=== PATIENT | male | born 1975 | race Asian ===

== ENCOUNTER 2016-07-23 21:34 | Inpatient (IN) | payer OTHER ==
[~2016-07-23] VITALS: Ht 179.1 cm; Wt 85.7 kg
[~2016-07-23 21:34] MED LIST: CENTRUM SILVER1 EAC3 PO; CHLORDIAZEPOXID25 M3 PO; CITALOPRAM HYDR20 MG PO; ESCITALOPRAM OX20 MG PO; FOLIC ACID1 M1; HALOPERIDOL2 MG PO; NICOTINE PATCH1 EAC1 TD; NICOTINE PATCH1 EAC1 TOP; NICOTINE PATCH1 EAC4 TOP; PROPRANOLOL HCL20 M1 PO; PROPRANOLOL HCL20 MG PO; TRAZODONE HCL50 M1 PO; VITAMIN B-1100 MG PO
--- NOTE | 2016-07-23 21:57 | NUR ---
RECEIVED 40 YO MALE C/O HAS NOT EATEN IN 7 DAYS SECONDARY TO NAUSEA AND VOMITING, UNABLE TO TOLERATE FOOD/FLUIDS. PT WITH A HX OF ETOH ABUSE, C/O HE LOOKS PUFFY, EDEMATOUS IN FACE AND FEET.
--- NOTE | 2016-07-23 22:21 | ED GENERAL ADULT ---
History of Present Illness General Chief Complaint: General Adult Stated Complaint: ETOH DETOX, VOMTING X 4DAYS, PUFFY,EDEMA PER PT Source: patient, family Exam Limitations: no limitations Vital Signs & Intake/Output Vital Signs & Intake/Output Vital Signs Date Time Temp Pulse Resp B/P Pulse O2 O2 Flow FiO2 Ox Delivery Rate 07/24 0232 98.0 80 20 104/70 95 Room Air 07/24 0129 96.5 85 18 106/63 97 Room Air 07/23 2350 97.2 88 18 112/77 07/23 2350 97.2 88 18 112/77 100 Room Air 07/23 2246 Room Air 07/23 2156 97.7 112 20 141/91 97 Room Air ED Intake and Output 07/24 0000 07/23 1200 Intake Total Output Total Balance Patient 192 lb Weight Allergies Coded Allergies: NO KNOWN ALLERGIES (12/14/14) Reconcile Medications Chlordiazepoxide HCl 25 MG CAPSULE 1 CAP PO TID PRN anxiety/withdrawal symptoms ten...[id number] Chlordiazepoxide HCl 25 MG CAPSULE 1-2 CAP PO TID PRN alcohol withdrawal four tabs...[id number] Escitalopram Oxalate 20 MG TABLET 1 TAB PO DAILY MENTAL HEALTH (Reported) Folic Acid 1 MG TABLET 1 MG PO DAILY FOLIC ACID SUPPLEMENT (Reported) Multivit-Min/FA/Lycopen/Lutein (Centrum Silver Tablet) 1 EACH TABLET 1 TAB PO DAILY VITAMIN SUPPORT (Reported) Propranolol HCl 20 MG TABLET 1 TAB PO DAILY HEART (Reported) Thiamine HCl (Vitamin B-1) 100 MG TABLET 1 TAB PO DAILY vitamin supplement Trazodone HCl 50 MG TABLET 1 TAB PO QPM sleep (Reported) Triage Note: RECEIVED 40 YO MALE C/O HAS NOT EATEN IN 7 DAYS SECONDARY TO NAUSEA AND VOMITING, UNABLE TO TOLERATE FOOD/FLUIDS. PT WITH A HX OF ETOH ABUSE, C/O HE LOOKS PUFFY, EDEMATOUS IN FACE AND FEET. Triage Nurses Notes Reviewed? yes Onset: Gradual Duration: week(s): Timing: recent history Injury Environment: home Severity: moderate Modifying Factors: Improves With: rest. Worsens With: other (vomiting, etoh). Associated Symptoms: nausea, vomiting HPI: 40-year-old gentleman with several history of alcoholism including more than 30 admission's for alcohol detox presents with 7 day history of nausea vomiting and decreased oral intake. He notes that he drinks usually between 1 and 2 pints of liquor a day. Starting 7 days ago, he started vomiting has not been able to hold anything down. He notes weakness and thirst. He notes a mild tremor, and slight facial "puffiness." He has no seizure history. He is otherwise well. Past History Travel History Traveled to [place] past 21 day No Medical History Any Pertinent Medical History? see below for history Neurological: NONE EENT: NONE Cardiovascular: NONE Respiratory: NONE Gastrointestinal: NONE Hepatic: NONE Renal: NONE Musculoskeletal: NONE Psychiatric: anxiety, depression Endocrine: NONE Blood Disorders: NONE Cancer(s): NONE SAFETY CONSULTANT/Reproductive: NONE History of MRSA: No History of VRE: No History of CDIFF: No Surgical History Surgical History: none Psychosocial History Who do you live with Family What is your primary language Somali Tobacco Use: Current Daily Use Daily Tobacco Use Amount/Type: => 5 Cigarettes daily Family History Hx Contributory? No Review of Systems Review of Systems Constitutional: Reports: no symptoms. EENTM: Reports: no symptoms. Respiratory: Reports: no symptoms. Cardiovascular: Reports: no symptoms. GI: Reports: no symptoms. Genitourinary: Reports: no symptoms. Musculoskeletal: Reports: no symptoms. Skin: Reports: no symptoms. Neurological/Psychological: Reports: no symptoms. Hematologic/Endocrine: Reports: no symptoms. Immunologic/Allergic: Reports: no symptoms. All Other Systems: Reviewed and Negative Physical Exam Physical Exam General Appearance: well developed/nourished, mild distress Head: atraumatic, normal appearance Eyes: Bilateral: normal appearance, PERRL, EOMI. Ears, Nose, Throat: normal pharynx, normal ENT inspection Neck: normal inspection, supple, full range of motion Respiratory: normal breath sounds, chest non-tender, no respiratory distress, quiet respiration, lungs clear Cardiovascular: regular rate/rhythm Gastrointestinal: normal bowel sounds, soft, non-tender, no organomegaly Back: normal inspection, normal range of motion Extremities: normal inspection, normal capillary refill, normal range of motion, no edema Neurologic/Psych: no motor/sensory deficits, awake, alert, oriented x 3 Skin: intact, normal color, warm/dry Core Measures ACS in differential dx? No CVA/TIA Diagnosis: No Severe Sepsis Present: No Septic Shock Present: No Progress Differential Diagnoses I considered the following diagnoses in my evaluation of the patient: electrolyte abnormality vs etoh vs etoh withdrawal vs other. Plan of Care: Orders Procedure Date/time Status HEPATIC FUNCTION PANEL 07/25 599 Active CBC WITHOUT DIFFERENTIAL 07/25 599 Active BASIC ELECTROLYTES PLUS BUN&CR 07/25 599 Active Nothing by Mouth 07/24 B Active Change service to 07/24 0217 Active Saline Lock 07/24 0018 Active Pathway - chart 07/24 17 Active EKG 07/24 0004 Active Patient Data 07/23 235 Active Saline Lock 07/23 2344 Active Misc Message 07/23 2344 Active ED Holding Orders 07/23 2344 Active Admit to inpatient 07/23 234 Active Vital Signs 07/23 234 Active Code Status 07/23 234 Active Intake & Output 07/23 224 Active CIWA 07/24 2239 Active LIPASE 07/24 2239 Complete AMYLASE 07/24 2239 Complete URINE DRUG SCREEN FOR ER ONLY 07/23 2156 Active ETHANOL 07/23 2156 Complete COMPREHENSIVE METABOLIC PANEL 07/23 2156 Complete CBC WITHOUT DIFFERENTIAL 07/23 2156 Complete Current Medications Sig/Dottie Start time Last Medication Dose Stop Time Status Admin Enoxaparin Sodium 40 MG DAILY 07/24 1000 AC (Lovenox) Lorazepam 2 MG Q6 07/24 0600 CAN (Ativan) Lorazepam 2 MG Q6 07/24 0600 AC (Ativan) Cyanocobalamin/ 1 BAG DAILY 07/24 29 UNVr Thiamine/Pyridoxine (Vitamin in I.V.) Sodium Chloride 1,000 ML (Normal Saline 0.9%) Diphenhydramine HCl 50 MG Q4P PRN 07/24 003 AC (Benadryl) Lactated Ringer's 1,000 ML .Q4H 07/24 003 AC (Lactated Ringers) 07/24 0429 Lorazepam 0 Q1P PRN 07/24 003 AC (Ativan) Metoclopramide HCl 10 MG Q6P PRN 07/24 0030 AC (Reglan) Morphine Sulfate 2 MG Q4P PRN 07/24 29 AC (Morphine) Laboratory Tests 07/23/160: Anion Gap 15, Estimated GFR > 60, BUN/Creatinine Ratio 12.5, Glucose 115 H, Calcium 9.3, Total Bilirubin 0.9, AST 267 H, ALT 134 H, Alkaline Phosphatase 102, Total Protein 8.4 H, Albumin 4.5, Globulin 3.9, Albumin/Globulin Ratio 1.2 , Amylase 131 H, Lipase 715 H, Serum Alcohol 382.0 07/23/160: CBC w Diff NO MAN DIFF REQ, RBC 5.61, MCV 86.1, MCH 28.6, RDW 15.4 H, MPV 7.4, Gran % 51.9, Lymphocytes % 37.0, Monocytes % 7.5, Eosinophils % 3.0, Basophils % 0.6, Absolute Granulocytes 3.0, Absolute Lymphocytes 2.2, Absolute Monocytes 0.4 , Absolute Eosinophils 0.2, Absolute Basophils 0, PUBS MCHC 33.2 07/23/16 2222: Amylase Cancelled, Lipase Cancelled Diagnostic Imaging: Viewed by Me: CT Scan. Discussed w/RAD: CT Scan. Radiology Impression: abd/pelvic ct... no acute change... full report below. Initial ED EKG: normal axis, normal intervals, normal p-waves, normal QRS complex, normal sinus rhythm Comments: PATIENT: KARLI AGUERO PRESENT AGE: 40 PATIENT ACCOUNT NO: [id number] : 76 LOCATION: [facility] ORDERING PHYSICIAN: CATHERINE EASON MD SERVICE DATE: 07/23/16 EXAM TYPE: CAT - CT ABD & PELVIS W/O IV CONTRAS EXAMINATION: CT ABDOMEN AND PELVIS WITHOUT CONTRAST CLINICAL INFORMATION: Upper abdominal pain. COMPARISON: None TECHNIQUE: Multidetector volumetric imaging was performed from the superior aspect of the liver through the pubic symphysis. Sagittal and coronal reformatted images were obtained on the technologist's workstation. No oral or intravenous contrast DLP: 351.56 mGy-cm FINDINGS: LUNG BASES: The visualized lung bases are unremarkable. LIVER, GALLBLADDER, AND BILIARY TREE: Diffuse low attenuation of the liver parenchyma due to fatty change. No focal liver lesion. No hepatic bile duct dilatation. Right lobe liver measures 18.4 cm superior inferior. The gallbladder is unremarkable with no evidence of radiopaque gallstones, gallbladder wall thickening, or obvious pericholecystic inflammatory changes. PANCREAS: Unremarkable. SPLEEN: Unremarkable. ADRENAL GLANDS: Unremarkable. KIDNEYS AND URETERS: The kidneys are normal in size, shape, and attenuation. No hydronephrosis, hydroureter, or calculi seen. No perinephric stranding. BLADDER: Unremarkable. GASTROINTESTINAL TRACT: The small and large bowel are unremarkable. The appendix is unremarkable. Stomach unremarkable. ABDOMINAL WALL: No significant hernia is appreciated. LYMPH NODES: Normal. VASCULAR: Unremarkable. PELVIC VISCERA: Unremarkable. OSSEOUS STRUCTURES: Unremarkable. IMPRESSION: No acute abnormality CT scan abdomen and pelvis. Diffuse fatty change of liver. DICTATED BY: SUSANNA TRAORE MD DATE/TIME DICTATED:07/24/1626 CHARTERED ACCOUNTANT:HAIM DATE/TIME TRANSCRIBED:07/24/1626 CONFIDENTIAL, DO NOT COPY WITHOUT APPROPRIATE AUTHORIZATION. <Electronically signed in Other Vendor System> SIGNED BY: SUSANNA TRAORE MD 07/24/16 003 Departure Departure Disposition: HOME OR SELF CARE Condition: Stable Clinical Impression Primary Impression: Alcoholism Secondary Impressions: Alcoholic hepatitis, Pancreatitis Referrals: ERVIN MOJICA MD (PCP/Family) Departure Forms: Customer Survey General Discharge Information Critical Care Note Critical Care Note Critical Care Time: non-applicable
--- NOTE | 2016-07-23 22:30 | NUR ---
IV EST #20 LAC
--- NOTE | 2016-07-23 22:46 | NUR ---
PT MEDICATED PER EMAR
[2016-07-23 22:48] LABS: ABSOLUTE BASOPHIL COUNT 0 /CUMM (0.0-0.2); ABSOLUTE EOSINOPHIL COUNT 0.2 /CUMM (0.0-0.7); ABSOLUTE LYMPH COUNT 2.2 /CUMM (1.2-3.4); ABSOLUTE MONOCYTE COUNT 0.4 /CUMM (0.10-0.60); BASOPHIL % 0.6 % (0.0-2.0); GRANULOCYTE % 51.9 % (42.2-75.2); HEMATOCRIT 48.3 % (42-52); MEAN CORPUSCULAR HGB 28.6 PG (27.0-31.0); MEAN CORPUSCULAR HGB CONC 33.2 G/DL (33.0-37.0); MEAN CORPUSCULAR VOLUME 86.1 FL (80.0-94.0); MEAN PLATELET VOLUME 7.4 FL (7.4-10.4); PLATELET COUNT 128 /CUMM (130-400); RBC DISTRIBUTION WIDTH 15.4 % (11.5-14.5); RED BLOOD CELL CT 5.61 /CUMM (4.70-6.10); WHITE BLOOD CELL COUNT 5.8 /CUMM (4.8-10.8)
[2016-07-23 23:50] VITALS: BP 112/77
--- NOTE | 2016-07-23 23:55 | NUR ---
DR EASON AT BEDSIDE TO DISCUSS POC. SECOND LITER NS INFUSING ORDERED. PT MEDICATED WITH 2 MG PO ATIVAN ORDERED
[2016-07-24] VITALS (9 sets, daily range): BP systolic 104–132; BP diastolic 70–90
--- NOTE | 2016-07-24 00:02 | NUR ---
PT TO CT
--- NOTE | 2016-07-24 00:17 | History & Physical ---
CATHY DURANT,SHANDRA 07/24/16 0016: General Information and HPI MD Statement: I have seen and personally examined KARLI AGUERO and documented this H&P. The patient is a 40 year old M who presented with a patient stated chief complaint of [vomiting, decreased by mouth intake, alcohol withdrawal]. Source of Information: patient, old records Exam Limitations: no limitations History of Present Illness: This is a 40-year-old male with past medical history significant for anxiety, depression, alcohol abuse with numerous admission for detox, tobacco dependence who comes in for chief complaint of vomiting, decreased by mouth intake, tremulousness and alcohol withdrawal. Patient endorses abdominal pain, nausea, vomiting. He denies recent travel, diarrhea, constipation, or exotic food ingestion. Stated that he drinks 1-2 pints of hard liquor a day. In addition, he smokes a pack a day but denies any drug abuse. Denies any other change to his usual routine. Denies any previous history of DTs or withdrawal seizures. This is patient's seventh visit to [facility] w/ alcohol related complaints. Note that in 2016 he had an inpatient admission for EtOH detox during which he left AMA Allergies/Medications Allergies: Coded Allergies: NO KNOWN ALLERGIES (12/14/14) Home Med list Chlordiazepoxide HCl 25 MG CAPSULE 1 CAP PO TID PRN anxiety/withdrawal symptoms ten...[id number] Chlordiazepoxide HCl 25 MG CAPSULE 1-2 CAP PO TID PRN alcohol withdrawal four tabs...[id number] Escitalopram Oxalate 20 MG TABLET 1 TAB PO DAILY MENTAL HEALTH (Reported) Folic Acid 1 MG TABLET 1 MG PO DAILY FOLIC ACID SUPPLEMENT (Reported) Multivit-Min/FA/Lycopen/Lutein (Centrum Silver Tablet) 1 EACH TABLET 1 TAB PO DAILY VITAMIN SUPPORT (Reported) Propranolol HCl 20 MG TABLET 1 TAB PO DAILY HEART (Reported) Thiamine HCl (Vitamin B-1) 100 MG TABLET 1 TAB PO DAILY vitamin supplement Trazodone HCl 50 MG TABLET 1 TAB PO QPM sleep (Reported) Compliance With Home Meds: UNKNOWN Past History Travel History Traveled to [place] past 21 day No Medical History Neurological: NONE EENT: NONE Cardiovascular: NONE Respiratory: NONE Gastrointestinal: NONE Hepatic: NONE Renal: NONE Musculoskeletal: NONE Psychiatric: anxiety, depression Endocrine: NONE Blood Disorders: NONE Cancer(s): NONE ALLIGATOR TRAPPER/Reproductive: NONE History of MRSA: No History of VRE: No History of CDIFF: No Surgical History Surgical History: none Past Family/Social History Psychosocial History Primary Language: Estonian Smoking Status: Current Everyday Smoker ETOH Use: alcoholic Illicit Drug Use: denies illicit drug use Functional Ability ADLs Independent: dressing, eating, toileting, bathing. Ambulation: independent IADLs Independent: shopping, housework, finances, food prep, telephone, transportation , medication admin. Review of Systems Review of Systems Constitutional: Reports: malaise, weakness. Denies: chills, diaphoresis, fever. EENTM: Denies: blurred vision, double vision, visual changes. Cardiovascular: Reports: edema. Denies: chest pain, palpitations. Respiratory: Denies: cough, short of breath, stridor, wheezing. GI: Reports: abdominal pain, nausea, vomiting. Denies: constipation, diarrhea, distention, bowel incontinence, melena, bloody stool, changes in stool. Genitourinary: Reports: no symptoms. Musculoskeletal: Reports: no symptoms. Skin: Reports: no symptoms. Exam & Diagnostic Data Last 24 Hrs of Vital Signs/I&O Vital Signs Date Time Temp Pulse Resp B/P Pulse O2 O2 Flow FiO2 Ox Delivery Rate 07/24 0232 98.0 80 20 104/70 95 Room Air 07/24 0129 96.5 85 18 106/63 97 Room Air 07/23 2350 97.2 88 18 112/77 07/23 2350 97.2 88 18 112/77 100 Room Air 07/23 2246 Room Air 07/23 2156 97.7 112 20 141/91 97 Room Air Intake & Output 07/24 0800 07/24 0000 07/23 1600 Intake Total Output Total Balance Patient 87.09 kg Weight Physical Exam General Appearance Alert, Oriented X3, Cooperative, No Acute Distress Skin No Rashes, No Breakdown, No Significant Lesion HEENT Atraumatic, PERRLA, EOMI, mucous membranes dry Neck Supple Cardiovascular Regular Rate, Normal S1, Normal S2, No Murmurs Lungs Clear to Auscultation, Normal Air Movement Abdomen Normal Bowel Sounds, Soft, No Tenderness, patient has bowel sounds 4 and well he initially endorsed abdominal pain, he denied any tenderness to palpation. Neurological Normal Speech, Strength at 5/5 X4 Ext, Sensation Intact, Cranial Nerves 3-12 NL Extremities No Clubbing, No Cyanosis, No Edema Last 24 Hrs of Labs/Ted: Laboratory Tests 07/23/160: Anion Gap 15, Estimated GFR > 60, BUN/Creatinine Ratio 12.5, Glucose 115 H, Calcium 9.3, Total Bilirubin 0.9, AST 267 H, ALT 134 H, Alkaline Phosphatase 102, Total Protein 8.4 H, Albumin 4.5, Globulin 3.9, Albumin/Globulin Ratio 1.2 , Amylase 131 H, Lipase 715 H, Serum Alcohol 382.0 07/23/160: CBC w Diff NO MAN DIFF REQ, RBC 5.61, MCV 86.1, MCH 28.6, RDW 15.4 H, MPV 7.4, Gran % 51.9, Lymphocytes % 37.0, Monocytes % 7.5, Eosinophils % 3.0, Basophils % 0.6, Absolute Granulocytes 3.0, Absolute Lymphocytes 2.2, Absolute Monocytes 0.4 , Absolute Eosinophils 0.2, Absolute Basophils 0, PUBS MCHC 33.2 07/23/162221: Amylase Cancelled, Lipase Cancelled Assessment/Plan Assessment: This is a 40-year-old man w/ past medical history significant for alcoholism, depression, anxiety, who comes in for chief complaint of nausea and vomiting for a week in addition to alcohol detox. Laboratory workup shows evidence of alcoholic gastritis. Plan 1. Alcoholic gastritis: Note that CT of abdomen and pelvis shows unremarkable pancreas and his amylase and lipase are 131 and 715 respectively. Pt has slight epigastric pain that does not radiate to his back. Currently no evidence for pancreatitis; treating as alcoholic gastritis. * IV Protonix * Zofran * Pain control with morphine * LR at 250 * Nothing by mouth * Con't monitor BEP/CBC 2. Alcohol withdrawal: Patient has history of alcohol level of 382. He states that he drinks 1-2 pints of hard liquor a day. He has had numerous admissions for inpatient detox. Denies any history of seizures or DTs. * [facility] protocol * Banana bag 3. Anxiety and depression: Chronic and stable * Consider psych consult for out patient f/u * Continue home regimen 4. Fatty change of liver: Seen on CT. * advised patient on alcohol cessation and healthy diet 5. Transaminitis: Patient has AST 267 ALT 134, and classic 2-1 alcoholic hepatitis pattern. * Con't monitor * advise etoh cessation 6. Smoking: Per pt he smokes up to 1 PPD. Cessation advised. Nicotine patch provided. * nicotine patch FULL CODE NPO CHEMICAL DVT PPX As Ranked By This Provider Problem List: 1. Alcohol dependence 2. Alcoholic hepatitis 3. Alcoholism 4. Pancreatitis Core Measures/Miscellaneous Acute Coronary Syndrome ACS Diagnosis: No Cerebrovascular Accident CVA/TIA Diagnosis: No Congestive Heart Failure CHF Diagnosis: No Venous Thromboembolism VTE Risk Factors: Acute medical illness, Age > 40 No [facility] VTE prophylaxis d/t: No contraindications No VTE Pharm Prophylaxis d/t: No contraindications VTE Diagnosis: No VTE Type: NONE VTE Confirmed by (Test): NONE Severe Sepsis Severe Sepsis Present: No Septic Shock Septic Shock Present: No Miscellaneous Documentation Attending Case Discussed With: ENMA DURANT,NOAH Vera Primary Care Physician: ROSEMARY MOJICA MDEETHA Patient sees these Specialists UNKNOWN Level of Patient Care: General Medicine JORDEN DURANT, [facility] 07/24/16 0218: Attending MD Review Statement Attending Statement Attending MD Statement: examined this patient, discuss w/resident/PA/RESIDENTIAL TECH, agreed w/resident/PA/RESIDENTIAL TECH Attending Assessment/Plan: 40 M smoker, with h/o alcohol dependence, anxiety, depression, with multiple previous detoxes, last at [place] (September 2015), resumed drinking again and reports being detoxed again at [facility]. No h/o withdrawal seizures. Multiple stressors+. Denies SI or HI. C/o nausea, vomiting and abdominal discomfort. Denies drug use, but has previously used marijuana. VSS. Labs: Plt 128, transaminitis (AST 267), ALT 134 consistent with alcohol use , lipase 715. S. Alcohol 382. Utox pending. CT abd/pelvis: diffuse fatty change of liver, no pancreatitis. Admitting for alcohol detox. CIWA, IV ativan per CIWA, PO ativan 2 mg Q6, banana bag, Psych consult for depression, Social work consult. Continue lexapro for depression and propranolol for tremors. His nausea and vomiting is most likely 2 /2 gastritis. Will give him IV PPI and anti-emetics. His lipase is borderline 700's, does not have typical epigastric pain, CT negative for pancreatitis. Transaminitis and thrombocytopenia in the setting of alcohol use. Trend LFTs. Smoking cessation counselling, nicotine patch. DVT ppx Alps. Full code. JAG DURANT,JEROME 07/24/16 0519: Resident Review Statement Resident Statement: examined this patient, discussed with undergraduate intern, agreed with undergraduate intern, discussed with family, reviewed EMR data (avail), discussed with nursing , discussed with case mgmt, reviewed images, amended to note Other Findings: Is a 40-year-old man with a long-standing history of alcohol abuse and intoxication, anxiety depression active tobacco user who presents with acute alcohol intoxication, emesis or days decreased by mouth intake 7 days tremulousness. This does not appear to be acute pancreatitis given that life is not greater than 3 times abdomen normal. CAT scan does not show any pancreatic inflammation necrosis or superimposed infection. LFTs are elevated in a pattern consistent with alcoholic liver injury AST greater than ALT. Platelets are expectedly loaded direct toxic effects alcohol has of bone marrow. This patient will be admitted to medicine floor, Ativan by mouth 2 mg every 6, with intravenous Ativan for CIWA as needed. Banana bag. Lactated Ringer's at 2 50 mL an hour 1 L. Repeat LFTs in the morning. DVT prophylaxis. Full code
--- NOTE | 2016-07-24 00:33 | CT SCAN REPORT ---
EXAMINATION: CT ABDOMEN AND PELVIS WITHOUT CONTRAST CLINICAL INFORMATION: Upper abdominal pain. COMPARISON: None TECHNIQUE: Multidetector volumetric imaging was performed from the superior aspect of the liver through the pubic symphysis. Sagittal and coronal reformatted images were obtained on the technologist's workstation. No oral or intravenous contrast DLP: 351.56 mGy-cm FINDINGS: LUNG BASES: The visualized lung bases are unremarkable. LIVER, GALLBLADDER, AND BILIARY TREE: Diffuse low attenuation of the liver parenchyma due to fatty change. No focal liver lesion. No hepatic bile duct dilatation. Right lobe liver measures 18.4 cm superior inferior. The gallbladder is unremarkable with no evidence of radiopaque gallstones, gallbladder wall thickening, or obvious pericholecystic inflammatory changes. PANCREAS: Unremarkable. SPLEEN: Unremarkable. ADRENAL GLANDS: Unremarkable. KIDNEYS AND URETERS: The kidneys are normal in size, shape, and attenuation. No hydronephrosis, hydroureter, or calculi seen. No perinephric stranding. BLADDER: Unremarkable. GASTROINTESTINAL TRACT: The small and large bowel are unremarkable. The appendix is unremarkable. Stomach unremarkable. ABDOMINAL WALL: No significant hernia is appreciated. LYMPH NODES: Normal. VASCULAR: Unremarkable. PELVIC VISCERA: Unremarkable. OSSEOUS STRUCTURES: Unremarkable. IMPRESSION: No acute abnormality CT scan abdomen and pelvis. Diffuse fatty change of liver.
--- NOTE | 2016-07-24 00:49 | NUR ---
Emergency Dept UC Admit Note: To be admitted to [facility] by DR. LEONARDO with PANCREATITIS, ETOH WITHDRAWAL/IMPENDING DT'S as the diagnosis, [id number]. Nursing Home [facility] Respiratory Therapist and admitting notified 07/24/16 at 0049
--- NOTE | 2016-07-24 01:50 | NUR ---
REPORT GIVEN TO GREG ZAIDI
--- NOTE | 2016-07-24 02:19 | Admission Certification ---
Admission Certification Certification Statement - As attending physician, I certify that at the time of - admission, based on clinical presentation, severity of - symptoms, need for further diagnostic testing and - therapeutic interventions, and risk of adverse outcomes - without in-hospital treatment, in my clinical assessment, - this patient requires an acute hospital stay for a minimum - of two nights or longer. I have also considered psychsocial - factors such as support system, advanced age, financial - issues, cognitive issues, and failed out-patient treatments, - past re-admission history, safety of patient, and lack of - compliance as applicable. Specific rationale supporting this admission is: Alcohol withdrawal.
--- NOTE | 2016-07-24 08:13 | NUR ---
0215 ADMITTED FROM ER VIA W/C TO ROOM 229 BED 1.40 YRS OLD MALE FROM HOME. A&OX3.DENIES PAIN.AMBULATED TO BED.PT HAS NS & BANANA BAG INFUSING FROM ER.NPO FOR NOW U/S ABDOMEN IN AM.PT C/O HAVING N/V AT HOME X4DAYS AND UNABLE TO EAT ANYTHING.PT VOIDED BEFORE GOING TO ER.HNV YET,NEED URINE FOR URINE TOX.URINAL AT BEDSIDE.ORIENTED TO ROOM & SURROUNDING.SETTLE TO SLEEP.
--- NOTE | 2016-07-24 11:28 | NUR ---
PATIENT SLEEPING FOR MOST PART OF THE MORNING. EASILY AROUSABLE. C/O SORE THROAT. CHLOROSEPTIC SPRAY ORDERED. DENIES NAUSEA. STARTED ON FULL LIQUID DIET. WILL MONITOR PO INTAKE.
--- NOTE | 2016-07-24 15:13 | Cons- Psychiatry ---
Psychiatric Consult Date of Consult: 07/24/16 Reason for Consult: "Alcohol detox" History of Present Illness: Identifying Info: 40-year-old [place] male presents to [facility] on 07/23/2016 for alcohol detox, with vomiting and edema 4 days. Subsequently diagnosed with pancreatitis and admitted to medicine. 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 He has a history of drinking since age 21 but it did not become a problem until that point. His most recent episode of drinking began on July 09 when he was discharged from the [facility] in [facility]. He had planned to follow up with [facility]'s IOP program and did complete an intake appointment however messed his first day of IOP a few weeks ago and has not followed up since. He would like to enroll in their program. He reports that he continues to drink approximately 1-2 pints of vodka daily. PMH: Please see the H&P for a complete listing Past Psych History: -Outpatient Formerly prescribed Lexapro and propranolol by his primary care provider, most recently prescribed by Dr. Nascimento of [facility] in [place]. -Inpatient No inpatient psych Family Psych History: Denies family psych history Substance History As above, current tobacco use. -Treatment Multiple detox admissions to [facility] most recent 09/2015 6+ admissions to [facility] between 2014 in 2015 1 detox admission [facility] [place] [facility] at [facility] between 02/2015 and 03/2015 Family Substance History: Denies Social: Patient is . Anival was born in [place], raised in [place] primarly since 6th grade but lived in [place] secondary to father's employment as a engineer automated equipment. Patient is older of two younger siblings (twins). He holds 2 masters degrees in business and teaching. Abuse/Trauma: Denies Current Home Psychotropic Medications: Lexapro 20 mg daily Propranolol 20 mg daily Of note, pt recently recieved a Rx for Campral which he has yet to steel pickler. He would like to initiate this therapy possible. Current Hospital Psychotropic Medications: Med Escitalopram Oxalate 20 MG PO DAILY 03/22/17 1000 Lorazepam IV Q1P PRN 07/24/16 0030 Lorazepam 2 MG PO Q6 07/24/16 0600 Allergies: Coded Allergies: NO KNOWN ALLERGIES (12/14/14) Current Medications: Current Medications Sig/Dottie Start time Last Medication Dose Route Stop Time Status Admin Cyanocobalamin/ 1 BAG DAILY 07/25 1000 AC Thiamine/Pyridoxine IV Sodium Chloride 1,000 ML Cyanocobalamin/ 1 BAG DAILY 07/24 1000 DC 07/24 Thiamine/Pyridoxine IV 0100 Sodium Chloride 1,000 ML Diphenhydramine HCl 50 MG Q4P PRN 07/24 0030 AC IV Enoxaparin Sodium 40 MG DAILY 07/24 1000 CAN SC Escitalopram Oxalate 20 MG DAILY 07/24 1000 AC 07/24 PO 0955 Lactated Ringer's 1,000 ML .Q4H 07/24 0030 DC 07/24 IV 07/24 0429 0445 Lorazepam 2 MG Q6 07/24 0600 CAN IV Lorazepam 2 MG Q6 07/24 0600 AC 07/24 PO 1207 Lorazepam 0 Q1P PRN 07/24 0030 AC IV Lorazepam 0 .STK-MED ONE 07/23 2348 DC PO Lorazepam 2 MG ONCE ONE 07/23 2315 DC 07/23 PO 07/23 2316 2354 Metoclopramide HCl 10 MG Q6P PRN 07/24 0030 AC IV Morphine Sulfate 2 MG Q4P PRN 07/24 0030 AC IV Nicotine 14 MG DAILY 07/24 1000 AC 07/24 TOP 0956 Omeprazole 40 MG BID 07/24 2200 AC PO Ondansetron HCl 0 .STK-MED ONE 07/23 2242 DC .ROUTE Ondansetron HCl 4 MG ONCE ONE 07/23 2229 DC 07/23 IV 07/23 2230 224 Pantoprazole Sodium 40 MG DAILY 07/24 1000 DC 07/24 IV 0959 Pantoprazole Sodium 0 .STK-MED ONE 07/23 2242 DC IV Pantoprazole Sodium 40 MG ONCE ONE 07/23 2229 DC 07/23 IV 07/23 2230 224 Patient Medication 1 ED .STK-MED ONE 07/24 1411 DC Teaching ED 07/24 1412 Phenol 2 SPRAY Q2P PRN 07/24 0900 AC 07/24 EXT 1207 Propranolol HCl 20 MG DAILY 07/24 1000 AC 07/24 PO 0956 Sodium Chloride 1,000 ML BOLUS ONE 07/23 2315 DC 07/23 IV 07/24 0014 2354 Sodium Chloride 1,000 ML BOLUS ONE 07/23 2230 DC 07/23 IV 07/23 2329 2245 Thiamine HCl 0 .STK-MED ONE 07/24 0058 DC .ROUTE Past History Past Medical History Neurological: NONE EENT: NONE Cardiovascular: NONE Respiratory: NONE Gastrointestinal: pancreatitis Hepatic: NONE Renal: NONE Musculoskeletal: NONE Psychiatric: alcohol dependence, anxiety, depression Endocrine: NONE Blood Disorders: NONE Cancer(s): NONE 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 Past Surgical History Surgical History: 1 Psychosocial History Strengths/Capabilities: Supportive family Has had periods of sobriety Able to ask for help Desire for recovery & sobriety Physical Limitations (Interventions): None identified Psychiatric Treatment History Psych Treatment Psychiatric Treatment Yes ((as above)) Diagnosis: Alcohol use disorder, severe Unspecified depressive disorder Risk Factors: SA/MH hospitalized, substance abuse, poor impulse control, male Substance Use/Abuse History Drug Use/Abuse Substances Used/Abused Yes ((as above)) Substance Abuse Treatment Substance Abuse Treatment Past Substance Abuse [place] Yes Assessment/Plan Mental Status Orientation: Person, Place, Situation Affect: Blunted Speech: WNL Neuro-vegetative: Anhedonia Mental Status Exam: Mental Status Exam Presentation/Appearance: Calm. Cooperative with evaluation. Hospital garb. Well groomed, somewhat diaphoretic. Orientation: x4 Sensorium: Awake and alert Eye contact: Appropriate Affect: Somewhat blunted but congruent with stated mood Mood: "Anxious Depression: 6/10 (10 worst) Anxiety: 6/10 (10 worst) Thought Content: - Denies SI/HI, AH/VH, PI. States and also believes they will not kill themselves. - Denies Hopeless/Helpless Thoughts Thought Process: Linear and goal directed Speech: Normal tone and rate Judgment: Fair Insight: Fair Cognition: Memory: Grossly intact Attention/Concentration: Intact Brief ROS Gait: Not observed Sleep: hypersomnia Appetite: Poor Energy: Low IADLs/ADLs: Independent Lab Results: Laboratory Tests 07/23/162239: Anion Gap 15, Estimated GFR > 60, BUN/Creatinine Ratio 12.5, Glucose 115 H, Calcium 9.3, Total Bilirubin 0.9, AST 267 H, ALT 134 H, Alkaline Phosphatase 102, Total Protein 8.4 H, Albumin 4.5, Globulin 3.9, Albumin/Globulin Ratio 1.2 , Amylase 131 H, Lipase 715 H, Serum Alcohol 382.0 07/23/160: CBC w Diff NO MAN DIFF REQ, RBC 5.61, MCV 86.1, MCH 28.6, RDW 15.4 H, MPV 7.4, Gran % 51.9, Lymphocytes % 37.0, Monocytes % 7.5, Eosinophils % 3.0, Basophils % 0.6, Absolute Granulocytes 3.0, Absolute Lymphocytes 2.2, Absolute Monocytes 0.4 , Absolute Eosinophils 0.2, Absolute Basophils 0, PUBS MCHC 33.2 07/23/162221: Amylase Cancelled, Lipase Cancelled Diffential Diagnosis: Alcohol use disorder, severe Unspecified depressive disorder with anxious features Rule out substance-induced mood disorder Impression: 40-year-old male with a two-year history of problem drinking who was previously high functioning presents to [facility] for alcohol detox and pancreatitis. This patient is treatment motivated but lacks the ability to remain sober without supports. At present he wishes to follow-up with [facility]'s IOP once detox is complete and he is medically cleared. Additionally he expresses a desire to start medication for alcohol craving symptoms. Provisional Treatment Plan: 1. Continue CIWA protocol as ordered. 2. Continue Ativan and vitamin supplementation as ordered. Once banana bag is discontinued please initiate by mouth vitamin supplementation. 3. Please continue Lexapro as currently ordered. 4. Please initiate Campral 666 mg 3 times a day by mouth unless otherwise medically contraindicated. 5. Patient to reach out to [facility]. Would appreciate social work assistance in disposition planning. Thank you for including psychiatry in this case we will continue to follow. Subhash Saunders APRN, pager [phone]
[2016-07-24 18:55] LABS: PT 11.5 SEC (9.4-12.5)
--- NOTE | 2016-07-24 21:46 | PN- Att Addend ---
Attending Addendum Attending Brief Note S: Patient states improved since yesterday. Abdominal pain better and tolerating full liquids at lunch. O: VS: Vital Signs Date Time Temp Pulse Resp B/P Pulse O2 O2 Flow FiO2 Ox Delivery Rate 07/24 1816 99.1 78 18 132/88 96 Room Air 07/24 1540 98.5 90 20 130/70 95 Intake & Output 07/24 1600 Intake Total 2350 Output Total Balance 2350 Intake, IV 1750 Intake, Oral 600 Number 0 Bowel Movements Current Medications Sig/Dottie Start time Last Medication Dose Route Stop Time Status Admin Acamprosate 666 MG TID 07/24 2200 AC PO Cyanocobalamin/ 1 BAG DAILY 07/25 1000 AC Thiamine/Pyridoxine IV Sodium Chloride 1,000 ML Cyanocobalamin/ 1 BAG DAILY 07/24 1000 DC 07/24 Thiamine/Pyridoxine IV 0100 Sodium Chloride 1,000 ML Diphenhydramine HCl 50 MG Q4P PRN 07/24 0030 AC IV Enoxaparin Sodium 40 MG DAILY 07/24 1000 CAN SC Escitalopram Oxalate 20 MG DAILY 07/24 1000 AC 07/24 PO 0955 Folic Acid 1 MG DAILY 07/25 1000 AC PO Lactated Ringer's 1,000 ML .Q4H 07/24 0030 DC 07/24 IV 07/24 0429 0445 Lorazepam 2 MG Q6 07/24 0600 CAN IV Lorazepam 2 MG Q6 07/24 0600 AC 07/24 PO 1743 Lorazepam 0 Q1P PRN 07/24 0030 AC 07/24 IV 2057 Lorazepam 0 .STK-MED ONE 07/23 2348 DC PO Lorazepam 2 MG ONCE ONE 07/23 2315 DC 07/23 PO 07/23 2316 2354 Metoclopramide HCl 10 MG Q6P PRN 07/24 0030 AC 07/24 IV 1611 Morphine Sulfate 2 MG Q4P PRN 07/24 0030 AC IV Multivitamins 1 TAB DAILY 07/25 1000 AC PO Nicotine 14 MG DAILY 07/24 1000 AC 07/24 TOP 0956 Omeprazole 40 MG BID 07/24 2200 AC 07/24 PO 2055 Ondansetron HCl 0 .STK-MED ONE 07/23 224 DC .ROUTE Ondansetron HCl 4 MG ONCE ONE 07/23 2229 DC 07/23 IV 07/23 Pantoprazole Sodium 40 MG DAILY 07/24 1000 DC 07/24 IV 0959 Pantoprazole Sodium 0 .STK-MED ONE 07/23 2242 DC IV Pantoprazole Sodium 40 MG ONCE ONE 07/23 2229 DC 07/23 IV 07/23 Patient Medication 1 ED .STK-MED ONE 07/24 1411 DC Teaching ED 07/24 1412 Phenol 2 SPRAY Q2P PRN 07/24 0900 AC 07/24 EXT 1207 Propranolol HCl 20 MG DAILY 07/24 1000 AC 07/24 PO 0956 Sodium Chloride 1,000 ML BOLUS ONE 07/23 2315 DC 07/23 IV 07/24 0014 2354 Sodium Chloride 1,000 ML BOLUS ONE 07/23 2229 DC 07/23 IV 07/23 2328 224 Thiamine HCl 100 MG DAILY 07/25 1000 AC PO Thiamine HCl 0 .STK-MED ONE 07/24 0058 DC .ROUTE Physical Exam: Chest: clear Cor: RRR, nl S1, S2, w/o murm Abd: BS+, soft, NT Ext: no edema Labs: Laboratory Tests 07/24/16 1750: PT 11.5, INR 1.10 07/24/16 1715: Urine Color YEL, Urine Clarity CLEAR, Urine pH 7.0, Ur Specific [place] 1.020, Urine Protein NEG, Urine Ketones NEG, Urine Nitrite NEG, Urine Bilirubin NEG, Urine Urobilinogen 0.2, Ur Leukocyte Esterase NEG, Ur Microscopic EXAM NOT REQUIRED, Urine Hemoglobin NEG, Urine Glucose NEG 07/23/162239: Anion Gap 15, Estimated GFR > 60, BUN/Creatinine Ratio 12.5, Glucose 115 H, Calcium 9.3, Total Bilirubin 0.9, AST 267 H, ALT 134 H, Alkaline Phosphatase 102, Total Protein 8.4 H, Albumin 4.5, Globulin 3.9, Albumin/Globulin Ratio 1.2 , Amylase 131 H, Lipase 715 H, Serum Alcohol 382.0 07/23/162229: CBC w Diff NO MAN DIFF REQ, RBC 5.61, MCV 86.1, MCH 28.6, RDW 15.4 H, MPV 7.4, Gran % 51.9, Lymphocytes % 37.0, Monocytes % 7.5, Eosinophils % 3.0, Basophils % 0.6, Absolute Granulocytes 3.0, Absolute Lymphocytes 2.2, Absolute Monocytes 0.4 , Absolute Eosinophils 0.2, Absolute Basophils 0, PUBS MCHC 33.2 07/23/16 2222: Amylase Cancelled, Lipase Cancelled Impression/Plan: #Abdominal Pain- most likely represent alcohol related gastritis. Pancreas normal on CT and exam benign. Plan: Will change PPI from IV Pantoprazole to po Omeprazole & observe. #EtOH Dependence/Withdrawal- on CIWA protocol. Plan: Continue CIWA/Ativan. Psych/Social Service consults #Abnormal LFT's- c/w alcohol. Plan: Will follow.
[2016-07-25] VITALS (11 sets, daily range): BP systolic 118–142; BP diastolic 60–100
--- NOTE | 2016-07-25 07:21 | PN- Housestaff ---
RUDDY DURANT,TMARA 07/25/16 0721: Subjective Follow-up For: Alcohol gastritis EtOH abuse/dependence/detox Transaminitis Thrombocytopenia Subjective: Patient seen and examined. He is seen lying flat in bed resting comfortably. He appears to be in no acute distress. He reports sleeping throughout the night but feels it wasn't very restful. He has persistent nausea without any vomiting and is mostly uninterested in eating breakfast. At this time he has no new subjective complaints. Additionally he denies any blurred/double vision, lightheadedness/dizziness, headache, fever, chills, chest pain, palpitations, shortness of breath, cough, nausea, vomiting, diarrhea, numbness/tingling. No overnight events reported. Review of Systems Constitutional: Reports: see HPI. Objective Last 24 Hrs of Vital Signs/I&O Vital Signs Date Time Temp Pulse Resp B/P Pulse O2 O2 Flow FiO2 Ox Delivery Rate 07/25 1415 97.3 100 20 142/84 99 Room Air 07/25 1200 99.0 99 20 130/80 07/25 1140 99.0 93 20 130/80 99 Room Air 07/25 0907 98.5 77 20 140/80 07/25 0800 98.5 77 20 140/80 07/25 0742 98.5 77 20 140/80 100 Room Air 07/25 0548 98.7 62 20 120/60 97 Room Air 07/25 0110 99.0 65 20 118/60 98 Room Air 07/25 0000 99.0 78 20 130/90 07/24 2207 99.0 78 20 130/90 98 07/24 1816 99.1 78 18 132/88 96 Room Air Intake & Output 07/25 1600 07/25 0800 07/25 0000 Intake Total 270 720 Output Total Balance 270 720 Intake, IV 30 Intake, Oral 240 720 Number 0 Bowel Movements Physical Exam General Appearance: Alert, Oriented X3, Cooperative, No Acute Distress Other Physical Findings: General -well-developed, well-nourished middle-aged man in no acute distress HEENT - NCAT, PERRL, EOMI, anicteric sclera Cardio - S1, S2 w/o murmurs/gallops/rubs Resp - CTA bilaterally w/o wheezing/rhochi/crackles GI - soft, nontender, nondistended, bowel sounds present Neuro - Awake and alert, CN II - XII grossly intact Extremities - no edema, pulses intact Current Medications: Current Medications Sig/Dottie Start time Last Medication Dose Route Stop Time Status Admin Acamprosate 666 MG TID 07/24 2199 07/25 PO 0907 Cyanocobalamin/ 1 BAG DAILY 07/25 1000 CAN Thiamine/Pyridoxine IV Sodium Chloride 1,000 ML Diphenhydramine HCl 50 MG Q4P PRN 07/24 0030 AC IV Escitalopram Oxalate 20 MG DAILY 07/24 1000 AC 07/25 PO 0907 Folic Acid 1 MG DAILY 07/25 1000 AC 07/25 PO 0907 Lorazepam 1.5 MG Q6 07/25 1200 AC 07/25 PO 1220 Lorazepam 2 MG Q6 07/24 0600 DC 07/25 PO 0613 Lorazepam 0 Q1P PRN 07/24 0030 AC 07/25 IV 1505 Metoclopramide HCl 10 MG Q6P PRN 07/24 0030 AC 07/25 IV 1503 Morphine Sulfate 2 MG Q4P PRN 07/24 0030 AC IV Multivitamins 1 TAB DAILY 07/25 1000 AC 07/25 PO 0907 Nicotine 14 MG DAILY 07/24 1000 AC 07/25 TOP 0907 Omeprazole 40 MG BID 07/24 2200 AC 07/25 PO 0907 Patient Medication 1 ED .STK-MED ONE 07/25 1345 DC Teaching ED 07/25 1346 Phenol 2 SPRAY Q2P PRN 07/24 0900 AC 07/24 EXT 1207 Potassium Chloride 40 MEQ ONCE ONE 07/25 0915 DC 07/25 PO 07/25 0916 1059 Propranolol HCl 20 MG DAILY 07/24 1000 AC 07/25 PO 0907 Sodium Chloride 1,000 ML ONCE ONE 07/25 1415 AC 07/25 IV 07/26 0014 1510 Thiamine HCl 100 MG DAILY 07/25 1000 AC 07/25 PO 0907 Last 24 Hrs of Lab/Ted Results Last 24 Hrs of Labs/Mics: Laboratory Tests 07/25/16 0645: Anion Gap 11, Estimated GFR > 60, BUN/Creatinine Ratio 7.1, Total Bilirubin 1.7 H, Direct Bilirubin 0.4, AST 125 H, ALT 93 H, Alkaline Phosphatase 79, Total Protein 6.5, Albumin 3.3 L, CBC w Diff NO MAN DIFF REQ, RBC 4.78, MCV 86.5, MCH 28.8, RDW 15.3 H, MPV 8.6, Gran % 64.0, Lymphocytes % 27.2, Monocytes % 5.7, Eosinophils % 2.7, Basophils % 0.4, Absolute Granulocytes 3.3, Absolute Lymphocytes 1.4, Absolute Monocytes 0.3, Absolute Eosinophils 0.1, Absolute Basophils 0, PUBS MCHC 33.3 07/24/16 1750: PT 11.5, INR 1.10 07/24/16 1715: Urine Color YEL, Urine Clarity CLEAR, Urine pH 7.0, Ur Specific [place] 1.020, Urine Protein NEG, Urine Ketones NEG, Urine Nitrite NEG, Urine Bilirubin NEG, Urine Urobilinogen 0.2, Ur Leukocyte Esterase NEG, Ur Microscopic EXAM NOT REQUIRED, Urine Hemoglobin NEG, Urine Glucose NEG Assessment/Plan Assessment: Patient CIWA scores overnight ranged from 4-11 requiring 3 mg of additional Ativan. He reports persistent tremulousness and nausea but was able to tolerate a full liquid lunch. His diet will be advanced to a regular diet for dinner and hopes that he will be able to tolerate it. His Ativan dose was reduced to 1.5 mg every 6 hours today. Liver function tests remained to ranged, we'll continue to follow. EtOH abuse/dependence/detox/alcoholic gastritis Patient with multiple readmissions for alcohol-related complaints seen for evaluation of occult intoxication with associated nausea and anorexia. Patient reports his last drink was one hour prior to arrival to the ED for which he consumed half a pint of 100 proof vodka. He denies any history of requiring ICU admission or an Ativan drip. CT abdomen/pelvis did not demonstrate any acute abnormality suggestive of pancreatitis. Lipase elevated to 715. -General medicine -CIWA protocol -Ativan 1.5 mg by mouth every 6 hours, taper as tolerated -Ativan when necessary per CIWA -Campral 666 mg by mouth 3 times a day -Omeprazole 40 mg by mouth twice a day -Reglan 10 mg IV every 6 hours as needed for nausea -Thiamine/folate/multivitamin -Psych consult -grease machine worker consult Elevated liver function test Most likely secondary to chronic alcoholism. Total bilirubin was initially elevated to 1.7. -Daily LFTs Depression/anxiety -Lexapro 20 mg by mouth daily -Propranolol 20 mg by mouth daily Current every day smoker-14 mg nicotine patch Pain plan-acetaminophen Diet-regular diet DVT prophylaxis-mechanical CODE STATUS-full code Problem List: 1. Alcohol abuse 2. Alcohol dependence Pain Ratin Pain Location: None Pain Goal: Remain pain free Pain Plan: See assessment Tomorrow's Labs & Rationales: CBC - hemoglobin drop BEP - hyponatremia JERARDO DURANTANGEL 07/25/16 1506: Attending MD Review Statement Attending Statement Attending MD Statement: examined this patient, discuss w/resident/PA/HYDRAMATIC MECHANIC, agreed w/resident/PA/HYDRAMATIC MECHANIC, reviewed EMR data (avail), discussed with nursing, discussed with case mgmt, reviewed images Attending Assessment/Plan: Patient continues to feel very nauseous. He is tolerating his liquids okay. His CT is negative for pancreatitis and his lipase is only 700. At this point I 'll advance his diet but watch him closely. I think he has hypovolemic hyponatremia and he is dehydrated so will give him one bag of fluids. Will watch his numbers closely specifically his LFTs, I want to make sure he's not going into severe alcoholic liver disease. Will titrate down his Ativan by 25% every day and follow-up.
[2016-07-25 07:57] LABS: ABSOLUTE BASOPHIL COUNT 0 /CUMM (0.0-0.2); ABSOLUTE EOSINOPHIL COUNT 0.1 /CUMM (0.0-0.7); ABSOLUTE MONOCYTE COUNT 0.3 /CUMM (0.10-0.60); BASOPHIL % 0.4 % (0.0-2.0); MEAN CORPUSCULAR HGB CONC 33.3 G/DL (33.0-37.0); RED BLOOD CELL CT 4.78 /CUMM (4.70-6.10)
[2016-07-25 08:23] LABS: ABSOLUTE GRANULOCYTE CT 3.3 /CUMM (1.4-6.5); ABSOLUTE LYMPH COUNT 1.4 /CUMM (1.2-3.4); EOSINOPHIL % 2.7 % (0-5); MEAN CORPUSCULAR HGB 28.8 PG (27.0-31.0); MEAN CORPUSCULAR VOLUME 86.5 FL (80.0-94.0); MEAN PLATELET VOLUME 8.6 FL (7.4-10.4); PLATELET COUNT 88 /CUMM (130-400); RBC DISTRIBUTION WIDTH 15.3 % (11.5-14.5); WHITE BLOOD CELL COUNT 5.2 /CUMM (4.8-10.8)
[2016-07-25 08:36] LABS: HEMATOCRIT 41.4 % (42-52)
--- NOTE | 2016-07-25 11:25 | PN- Psychiatry ---
Assessment/Plan Impression: Patient is a 40-year-old [facility] [place] male who presented to [facility] on 07/23/2016 for alcohol detox, with vomiting and edema 4 days. Subsequently diagnosed with pancreatitis and admitted to medicine. Patient remains goal and future oriented for sobriety and to partake in [facility]'s IOP status-post discharge from hospital. He denies suicidal and homicidal ideation, plans or intent. He denied perceptual disturbances, and reported tolerating Ativan management well for alcohol withdrawal. Tolerating new trial of Campral well and denied untoward medication effects. Differential Diagnoses: 1.Alcohol use disorder, severe 2.Unspecified depressive disorder with anxious features 3.Rule out substance-induced mood disorder Suggestion: 1. Continue prescribed psychotropic medications as ordered. 2. Continue CIWA protocol and Ativan management as ordered for alcohol withdrawal. 3. Patient to reach out to [facility]. Would appreciate social work assistance in disposition planning. Subjective Subjective: SUBJECTIVE Gait: slow, steady, independent Sleep: "pretty good" Appetite: "I'm having a hard time keeping food down. Fluids are staying down though." Objective Last 24 Hrs of Vital Signs/I&O Vital Signs Date Time Temp Pulse Resp B/P Pulse O2 O2 Flow FiO2 Ox Delivery Rate 07/25 0907 98.5 77 20 140/80 07/25 0800 98.5 77 20 140/80 07/25 0742 98.5 77 20 140/80 100 Room Air 07/25 0548 98.7 62 20 120/60 97 Room Air 07/25 0110 99.0 65 20 118/60 98 Room Air 07/25 0000 99.0 78 20 130/90 07/24 2207 99.0 78 20 130/90 98 07/24 1816 99.1 78 18 132/88 96 Room Air 07/24 1540 98.5 90 20 130/70 95 07/24 1200 98.1 85 20 122/82 Intake & Output 07/25 1600 07/25 0800 07/25 0000 Intake Total 270 720 Output Total Balance 270 720 Intake, IV 30 Intake, Oral 240 720 Number 0 Bowel Movements Physical Exam: Mental Status Exam Presentation/Appearance: Cooperative with evaluation, wearing hospital garb. Orientation: Oriented to person, place, time and situation. Sensorium: Awake and alert Eye contact: Appropriate Affect: Somewhat blunted. Mood: "I'm alright" Depression: 5/10 (10 being the worst) Anxiety: 6/10 (10 being the worst) Thought Content: - Denies SI/HI, AH/VH, PI. States and also believes he will not kill himself. - Denies feeling hopeless/helpless/worthless/guilty Thought Process: linear, goal-directed, organized. Speech: soft-spoken, well articulated. Judgment: fair Insight: fair Cognition: grossly intact Memory: grossly intact Attention/Concentration: intact Current Medications: Current Medications Sig/Dottie Start time Last Medication Dose Route Stop Time Status Admin Acamprosate 666 MG TID 07/24 2199 AC 07/25 PO 0907 Cyanocobalamin/ 1 BAG DAILY 07/25 1000 CAN Thiamine/Pyridoxine IV Sodium Chloride 1,000 ML Diphenhydramine HCl 50 MG Q4P PRN 07/24 0030 AC IV Escitalopram Oxalate 20 MG DAILY 07/24 1000 AC 07/25 PO 0907 Folic Acid 1 MG DAILY 07/25 1000 AC 07/25 PO 0907 Lorazepam 1.5 MG Q6 07/25 1200 AC PO Lorazepam 2 MG Q6 07/24 0600 DC 07/25 PO 0613 Lorazepam 0 Q1P PRN 07/24 0030 AC 07/25 IV 0820 Metoclopramide HCl 10 MG Q6P PRN 07/24 0030 AC 07/25 IV 0829 Morphine Sulfate 2 MG Q4P PRN 07/24 0030 AC IV Multivitamins 1 TAB DAILY 07/25 1000 AC 07/25 PO 0907 Nicotine 14 MG DAILY 07/24 1000 AC 07/25 TOP 0907 Omeprazole 40 MG BID 07/24 2200 AC 07/25 PO 0907 Patient Medication 1 ED .STK-MED ONE 07/24 1411 DC Teaching ED 07/24 1412 Phenol 2 SPRAY Q2P PRN 07/24 0900 AC 07/24 EXT 1207 Potassium Chloride 40 MEQ ONCE ONE 07/25 0915 DC 07/25 PO 07/25 0916 1059 Propranolol HCl 20 MG DAILY 07/24 1000 AC 07/25 PO 0907 Thiamine HCl 100 MG DAILY 07/25 1000 AC 07/25 PO 0907 Results Last 24 Hrs of Labs/Mics: Laboratory Tests 07/25 07/24 0645 1750 Chemistry Sodium (137 - 145 mmol/L) 131 L Potassium (3.5 - 5.1 mmol/L) 3.6 Chloride (98 - 107 mmol/L) 96 L Carbon Dioxide (22 - 30 mmol/L) 24 Anion Gap (5 - 16) 11 BUN (9 - 20 mg/dL) 5 L Creatinine (0.7 - 1.2 mg/dL) 0.7 Estimated GFR (>60 ml/min) > 60 BUN/Creatinine Ratio (7 - 25 %) 7.1 Total Bilirubin (0.2 - 1.3 mg/dL) 1.7 H Direct Bilirubin (< 0.4 mg/dL) 0.4 AST (17 - 59 U/L) 125 H ALT (21 - 72 U/L) 93 H Alkaline Phosphatase (< 127 U/L) 79 Total Protein (6.3 - 8.2 g/dL) 6.5 Albumin (3.5 - 5.0 g/dL) 3.3 L Coagulation PT (9.4 - 12.5 SEC) 11.5 INR (0.90 - 1.17) 1.10 Hematology CBC w Diff NO MAN DIFF REQ WBC (4.8 - 10.8 /CUMM) 5.2 RBC (4.70 - 6.10 /CUMM) 4.78 Hgb (14.0 - 18.0 G/DL) 13.8 L Hct (42 - 52 %) 41.4 L MCV (80.0 - 94.0 FL) 86.5 MCH (27.0 - 31.0 PG) 28.8 RDW (11.5 - 14.5 %) 15.3 H Plt Count (130 - 400 /CUMM) 88 L MPV (7.4 - 10.4 FL) 8.6 Gran % (42.2 - 75.2 %) 64.0 Lymphocytes % (20.5 - 51.1 %) 27.2 Monocytes % (1.7 - 9.3 %) 5.7 Eosinophils % (0 - 5 %) 2.7 Basophils % (0.0 - 2.0 %) 0.4 Absolute Granulocytes (1.4 - 6.5 /CUMM) 3.3 Absolute Lymphocytes (1.2 - 3.4 /CUMM) 1.4 Absolute Monocytes (0.10 - 0.60 /CUMM) 0.3 Absolute Eosinophils (0.0 - 0.7 /CUMM) 0.1 Absolute Basophils (0.0 - 0.2 /CUMM) 0 PUBS MCHC (33.0 - 37.0 G/DL) 33.3 07/24 1715 Urines Urine Color (YEL,AMB,STR) YEL Urine Clarity (CLEAR) CLEAR Urine pH (5.0 - 8.0) 7.0 Ur Specific [place] (1.001 - 1.035) 1.020 Urine Protein (NEG,<30 MG/DL) NEG Urine Ketones (NEG) NEG Urine Nitrite (NEG) NEG Urine Bilirubin (NEG) NEG Urine Urobilinogen (0.1 - 1.0 EU/dl) 0.2 Ur Leukocyte Esterase (NEG) NEG Ur Microscopic EXAM NOT REQUIRED Urine Hemoglobin (NEG) NEG Urine Glucose (N MG/DL) NEG Thank you for including psychiatry in this case. We will continue to follow as needed. Bruna Emery, RECLAMATION SUPERVISOR Pager: [phone]
--- NOTE | 2016-07-25 16:05 | NUR ---
Referral received yesterday morning via electronic order entry clerk. This patient is a 40 year old man, admitted to the hospital late in the evening of 07/23/16 with pancreatitis in the setting of alcohol dependence. Patient known to this program writer from an admission to the hospital in October of 2015; he subsequently participated in our IOP. Most recently, patient had been discharged from a residential treatment facility and was to start at the IOP at [facility]. He went to [facility] on 07/09/16 for an intake but never reported for treatment. I met with Martell this afternoon. He was pleasant, cooperative with interview, and expressed interest in treatment once again. He reported "not caring for" our IOP; instead, wishing to return to [facility]. Call placed to [facility]; message left; will await return call to confirm ability to return to [facility]. Follow.
[2016-07-26] VITALS (7 sets, daily range): BP systolic 116–130; BP diastolic 80–100
--- NOTE | 2016-07-26 07:22 | PN- Housestaff ---
TAMRA FOX MD 07/26/16 0721: Subjective Follow-up For: Alcohol gastritis EtOH abuse/dependence/detox Transaminitis Thrombocytopenia Subjective: Patient seen and examined. He is seen lying flat in his bed resting comfortably. He appears to be in no acute distress. He tolerated his regular diet well last night and denies any further persistent nausea. Overall he feels well today and has no new subjective complaints. Additionally he denies any blurred/double vision, lightheadedness/dizziness, tremor, headache, fever, chills, chest pain, palpitations, shortness of breath, cough, nausea, vomiting, diarrhea. No overnight events reported. Review of Systems Constitutional: Reports: see HPI. Objective Last 24 Hrs of Vital Signs/I&O Vital Signs Date Time Temp Pulse Resp B/P Pulse O2 O2 Flow FiO2 Ox Delivery Rate 07/26 0658 98.2 79 20 130/100 99 Room Air 07/26 0600 98.2 79 20 130/100 07/26 0221 98.4 81 20 130/84 99 Room Air 07/26 0200 98.4 81 20 130/84 07/25 2210 98.9 70 20 130/94 98 07/25 1853 120/90 07/25 1807 98.7 87 20 138/100 98 07/25 1415 97.3 100 20 142/84 99 Room Air 07/25 1200 99.0 99 20 130/80 07/25 1140 99.0 93 20 130/80 99 Room Air 07/25 0907 98.5 77 20 140/80 Intake & Output 07/26 1600 07/26 0800 07/26 0000 Intake Total 600 900 Output Total Balance 600 900 Intake, IV 500 300 Intake, Oral 100 600 Number 0 Bowel Movements Physical Exam General Appearance: Alert, Oriented X3, Cooperative, No Acute Distress Other Physical Findings: General -well-developed, well-nourished middle-aged man in no acute distress HEENT - NCAT, PERRL, EOMI, anicteric sclera Cardio - S1, S2 w/o murmurs/gallops/rubs Resp - CTA bilaterally w/o wheezing/rhochi/crackles GI - soft, nontender, nondistended, bowel sounds present Neuro - Awake and alert, CN II - XII grossly intact Extremities - no edema, pulses intact Current Medications: Current Medications Sig/Dottie Start time Last Medication Dose Route Stop Time Status Admin Acamprosate 666 MG TID 07/24 2200 AC 07/25 PO 2152 Acetaminophen 325 MG Q12P PRN 07/25 1600 AC PO Cyanocobalamin/ 1 BAG DAILY 07/25 1000 CAN Thiamine/Pyridoxine IV Sodium Chloride 1,000 ML Diphenhydramine HCl 50 MG Q4P PRN 07/24 0030 AC IV Escitalopram Oxalate 20 MG DAILY 07/24 1000 AC 07/25 PO 0907 Folic Acid 1 MG DAILY 07/25 1000 AC 07/25 PO 0907 Lorazepam 1 MG Q6 07/26 1200 AC PO Lorazepam 0.5 MG .STK-MED ONE 07/25 1754 DC PO 07/25 1755 Lorazepam 0.5 MG .STK-MED ONE 07/25 1216 DC PO 07/25 1217 Lorazepam 1.5 MG Q6 07/25 1200 DC 07/26 PO 0554 Lorazepam 2 MG Q6 07/24 0600 DC 07/25 PO 0613 Lorazepam 0 Q1P PRN 07/24 0030 AC 07/25 IV 1505 Metoclopramide HCl 10 MG Q6P PRN 07/24 0030 AC 07/25 IV 1503 Morphine Sulfate 2 MG Q4P PRN 07/24 0030 DC IV Multivitamins 1 TAB DAILY 07/25 1000 AC 07/25 PO 0907 Nicotine 14 MG DAILY 07/24 1000 AC 07/25 TOP 0907 Omeprazole 40 MG BID 07/24 2200 AC 07/25 PO 2152 Patient Medication 1 ED .STK-MED ONE 07/25 1345 DC Teaching ED 07/25 1346 Phenol 2 SPRAY Q2P PRN 07/24 0900 AC 07/24 EXT 1207 Potassium Chloride 40 MEQ ONCE ONE 07/25 0915 DC 07/25 PO 07/25 0916 1059 Propranolol HCl 20 MG DAILY 07/24 1000 AC 07/25 PO 0907 Ramelteon 8 MG ONCE ONE 07/26 0100 DC 07/26 PO 07/26 0101 0111 Sodium Chloride 1,000 ML ONCE ONE 07/25 1415 DC 07/25 IV 07/26 0014 1510 Thiamine HCl 100 MG DAILY 07/25 1000 AC 07/25 PO 0907 Last 24 Hrs of Lab/Ted Results Last 24 Hrs of Labs/Mics: Laboratory Tests 07/26/16 0635: Anion Gap 7, Estimated GFR > 60, BUN/Creatinine Ratio 7.5, Total Bilirubin 1.5 H, Direct Bilirubin 0.5 H, AST 79 H, ALT 81 H, Alkaline Phosphatase 75, Total Protein 6.7, Albumin 3.5, CBC w Diff NO MAN DIFF REQ, RBC 4.72, MCV 87.6, MCH 29.0, RDW 15.1 H, MPV 8.8, Gran % 51.0, Lymphocytes % 37.7, Monocytes % 7.8, Eosinophils % 3.2, Basophils % 0.3, Absolute Granulocytes 2.7, Absolute Lymphocytes 2.0, Absolute Monocytes 0.4, Absolute Eosinophils 0.2, Absolute Basophils 0, PUBS MCHC 33.2 Assessment/Plan Assessment: CIWA scores from 6 PM yesterday ranged from 4-5 requiring 0 additional doses of additional Ativan. His nausea/vomiting has now resolved and he is tolerating a full regular diet. His Ativan taper is to be reduced to 1 mg every 6 hours today. Patient reportedly was to attend [facility] for which she went to the intake appointment on 07/09/16 failed to report to his rehabilitation program. He reportedly contacted their services last night to express that he was still interested in pursuing treatment. Liver function tests have minimally improved today with persistent elevation in total bilirubin. EtOH abuse/dependence/detox/alcoholic gastritis Patient with multiple readmissions for alcohol-related complaints seen for evaluation of occult intoxication with associated nausea and anorexia. Patient reports his last drink was one hour prior to arrival to the ED for which he consumed half a pint of 100 proof vodka. He denies any history of requiring ICU admission or an Ativan drip. CT abdomen/pelvis did not demonstrate any acute abnormality suggestive of pancreatitis. Lipase elevated to 715. -General medicine -CIWA protocol -Ativan 1 mg by mouth every 6 hours, taper as tolerated -Ativan when necessary per CIWA -Campral 666 mg by mouth 3 times a day -Omeprazole 40 mg by mouth twice a day -Reglan 10 mg IV every 6 hours as needed for nausea -Thiamine/folate/multivitamin -Psych consult -river transportation worker consult Elevated liver function test Most likely secondary to chronic alcoholism. Total bilirubin was initially elevated to 1.7. -Daily LFTs Thrombocytopenia Platelets were found to be initially low at 128. Patient was given intravenous fluids that have possibly diluted the platelet count to even lower over the course of the hospitalization. Given his history of alcoholism patient may be suffering from bone marrow suppression and resulting low platelet count. INR was found to be normal at 1.10. -Daily CBC Depression/anxiety -Lexapro 20 mg by mouth daily -Propranolol 20 mg by mouth daily Current every day smoker-14 mg nicotine patch Pain plan-acetaminophen Diet-regular diet DVT prophylaxis-mechanical CODE STATUS-full code Problem List: 1. Alcohol dependence Pain Ratin Pain Location: None Pain Goal: Remain pain free Pain Plan: See assessment Tomorrow's Labs & Rationales: None ANGEL KURTZ MD 07/26/16 1127: Attending MD Review Statement Attending Statement Attending MD Statement: examined this patient, discuss w/resident/PA/OPTICAL SCIENTIST, agreed w/resident/PA/OPTICAL SCIENTIST, reviewed EMR data (avail), discussed with nursing, discussed with case mgmt, reviewed images Attending Assessment/Plan: Pt feels markedly better today. He is able to eat a regular diet. He got 1 more bag of IV fluids and then it stopped. His transaminitis and elevated liver enzymes are coming down and we believe this is all alcohol-related. He probably has alcohol-related gastritis as well which we're treating with the by mouth PPI. We are tapering the Ativan fairly quickly given his marked clinical improvement with the hope of making it twice a day tomorrow and discharge either later tomorrow or day after. He is going to follow-up in a facility that he has spoken to the social work faculty member about.
[2016-07-26 08:09] LABS: ABSOLUTE BASOPHIL COUNT 0 /CUMM (0.0-0.2); ABSOLUTE EOSINOPHIL COUNT 0.2 /CUMM (0.0-0.7); ABSOLUTE GRANULOCYTE CT 2.7 /CUMM (1.4-6.5); ABSOLUTE MONOCYTE COUNT 0.4 /CUMM (0.10-0.60); BASOPHIL % 0.3 % (0.0-2.0); EOSINOPHIL % 3.2 % (0-5); HEMATOCRIT 41.3 % (42-52); MEAN CORPUSCULAR HGB CONC 33.2 G/DL (33.0-37.0); MEAN CORPUSCULAR VOLUME 87.6 FL (80.0-94.0); MEAN PLATELET VOLUME 8.8 FL (7.4-10.4); PLATELET COUNT 83 /CUMM (130-400); RBC DISTRIBUTION WIDTH 15.1 % (11.5-14.5); RED BLOOD CELL CT 4.72 /CUMM (4.70-6.10); WHITE BLOOD CELL COUNT 5.3 /CUMM (4.8-10.8)
[2016-07-26] MEDS ORDERED: OMEPRAZOLE20 M3 PO (15:34)
[2016-07-26] MEDS ORDERED: LORAZEPAM1 M1 PO (15:34)
--- NOTE | 2016-07-26 15:38 | Patient Discharge Instructions ---
Discharge Instructions General Discharge Information Special Instructions: Finish your Ativan Taper as directed. Follow up with your intake at [facility] for further care. Follow up with your primary care provider after discharge. Do not drink alcohol. Acute Coronary Syndrome Inclusion Criteria At DC or during hospital stay patient has or had the following: ACS DIAGNOSIS No Discharge Core Measures Meds if any: Prescribed or Continued at Discharge Meds if any: NOT Prescribed or Continued at Discharge Congestive Heart Failure Inclusion Criteria At DC or during hospital stay patient has or had the following: CHF DIAGNOSIS No Discharge Core Measures Meds if any: Prescribed or Continued at Discharge Meds if any: NOT Prescribed or Continued at Discharge Cerebrovascular accident Inclusion Criteria At DC or during hospital stay patient has or had the following: CVA/TIA Diagnosis No Discharge Core Measures Meds if any: Prescribed or Continued at Discharge Meds if any: NOT Prescribed or Continued at Discharge Venous thromboembolism Inclusion Criteria VTE Diagnosis No VTE Type NONE VTE Confirmed by (Test) NONE Discharge Core Measures - Per Current guidelines, there needs to be overlap - treatment for the first 5 days of Warfarin therapy. - If discharged on Warfarin prior to 5 days of - overlap therapy, the patient will need to be - assessed for post discharge needs including - *Post discharge parental anticoagulation - *Warfarin and/or parental anticoagulation education - *Follow up date to check INR post discharge At least 5 days overlap therapy as Inpatient No Meds if any: Prescribed or Continued at Discharge Note: Overlap Therapy is Warfarin and Anticoagulant Meds if any: NOT Prescribed or Continued at Discharge
--- NOTE | 2016-07-26 19:10 | NUR ---
Met again with patient this afternoon. Chino reported feeling better than yesterday, but still very tired. I told him that had still not received a call back from [facility] about starting their IOP. Chino reported that he also had called and left a message inquiring as well. Chino is prepared to access [facility]'s IOP via their "walk-in" evaluations. In the meantime, he also reports that he will be living with his parents, which is both a safe and sober environment and he furhter states that he will attend AA as well. Please call if other social work needs arise.
[2016-07-27 06:56] VITALS: BP 118/86
[2016-07-27 08:00] VITALS: BP 130/74
[2016-07-27 08:15] VITALS: BP 120/76
[2016-07-27] MEDS ORDERED: ACAMPROSATE CA333 M1 PO (08:44)
--- NOTE | 2016-07-27 08:47 | PN- Att Addend ---
Attending Addendum Attending Brief Note Patient seen and examined. He feels okay and hasn't used any when necessary Ativan since the . He is tolerating a diet and walking all over the unit. I spoke to him at length. The plan is that he is going to go home to his parent 's house today and he will follow-up with [facility] for alcohol rehabilitation on Friday either as a walk-in or with an appointment. I will also speak Claire Anguiano , the medical social worker on Friday to give Ricardo PADRON a heads-up in case he doesn't get into the [facility]. He has all his meds at home in terms of his antidepressants and vitamins. We'll give him a week's worth of the acamprosate to take care of the craving for alcohol and give him 2 days off the Ativan taper namely 2 pills one for tonight and one for tomorrow morning and then stop. I spoke to him at length about alcohol cessation and he feels he has the necessary support systems to do so.
[2016-07-27] MEDS ORDERED: NICOTINE PATCH1 EAC2 TOP (08:59)
--- NOTE | 2016-07-27 09:00 | PN- Housestaff ---
Subjective Follow-up For: Alcohol gastritis EtOH abuse/dependence/detox Transaminitis Thrombocytopenia Subjective: Patient seen and examined. He is seen sitting upright in bed enjoying his breakfast. He appears to be in no acute distress. He reports resolution of his abdominal pain/nausea/vomiting. He is concerned about his plans going forward but understands that he needs to abstain from alcohol and follow up with his outpatient treatment. He is comfortable with his discharge today. Additionally he denies any blurred/double vision, lightheadedness/dizzyness, headache, fever, chills, chest pain, palpitations, shortness of breath, cough, nausea, vomiting, diarrhea. No overnight events reported. Review of Systems Constitutional: Reports: see HPI. Objective Last 24 Hrs of Vital Signs/I&O Vital Signs Date Time Temp Pulse Resp B/P Pulse O2 O2 Flow FiO2 Ox Delivery Rate 07/27 0815 120/76 07/27 08 97.8 83 18 130/74 07/27 0656 98.2 80 16 118/86 98 Room Air 07/26 2200 99.3 85 20 116/80 07/26 2200 99.9 85 20 116/80 98 Room Air 07/26 1600 97.6 96 20 120/80 07/26 1515 97.6 96 20 120/80 98 Intake & Output 07/27 1600 07/27 0800 07/27 0000 Intake Total 240 1000 Output Total Balance 240 1000 Intake, Oral 240 1000 Number 0 Bowel Movements Physical Exam General Appearance: Alert, Oriented X3, Cooperative, No Acute Distress Other Physical Findings: General -well-developed, well-nourished middle-aged man in no acute distress HEENT - NCAT, PERRL, EOMI, anicteric sclera Cardio - S1, S2 w/o murmurs/gallops/rubs Resp - CTA bilaterally w/o wheezing/rhochi/crackles GI - soft, nontender, nondistended, bowel sounds present Neuro - Awake and alert, CN II - XII grossly intact Extremities - no edema, pulses intact Current Medications: Current Medications Sig/Dottie Start time Last Medication Dose Route Stop Time Status Admin Acamprosate 666 MG TID 07/24 2199 AC 07/27 PO 0824 Acetaminophen 325 MG Q12P PRN 07/25 1600 AC PO Diphenhydramine HCl 50 MG Q4P PRN 07/24 0030 AC IV Escitalopram Oxalate 20 MG DAILY 07/24 1000 AC 07/27 PO 0823 Folic Acid 1 MG DAILY 07/25 1000 AC 07/27 PO 0815 Lorazepam 1 MG Q8 07/26 1400 AC 07/27 PO 0542 Lorazepam 0 Q1P PRN 07/24 0030 AC 07/25 IV 1505 Metoclopramide HCl 10 MG Q6P PRN 07/24 0030 AC 07/25 IV 1503 Multivitamins 1 TAB DAILY 07/25 1000 AC 07/27 PO 0815 Nicotine 14 MG DAILY 07/24 1000 AC 07/27 TOP 0821 Omeprazole 40 MG BID 07/24 2200 AC 07/27 PO 0815 Patient Medication 1 ED .STK-MED ONE 07/26 1339 DC Teaching ED 07/26 1340 Phenol 2 SPRAY Q2P PRN 07/24 0900 AC 07/24 EXT 1207 Propranolol HCl 20 MG DAILY 07/24 1000 AC 07/27 PO 0815 Ramelteon 8 MG QPM PRN 07/26 0900 AC 07/26 PO 2149 Thiamine HCl 100 MG DAILY 07/25 1000 AC 07/27 PO 0815 Assessment/Plan Assessment: CIWA scores from 6pm yesterday range from 0-3 requiring no additional doses of ativan. He reports resolution of his symptoms of alcoholic gastritis. He continues to tolerate his full diet. He is to be discharged to his parents with the remainder of his ativan taper. he is to follow up with his intake at [facility]. Should this no longer be an option arrangements to follow up with [facility] are to be made. EtOH abuse/dependence/detox/alcoholic gastritis Patient with multiple readmissions for alcohol-related complaints seen for evaluation of occult intoxication with associated nausea and anorexia. Patient reports his last drink was one hour prior to arrival to the ED for which he consumed half a pint of 100 proof vodka. He denies any history of requiring ICU admission or an Ativan drip. CT abdomen/pelvis did not demonstrate any acute abnormality suggestive of pancreatitis. Lipase elevated to 715. -General medicine -CIWA protocol -Ativan 1 mg by mouth every 6 hours, taper as tolerated -Ativan when necessary per CIWA -Campral 666 mg by mouth 3 times a day -Omeprazole 40 mg by mouth twice a day -Reglan 10 mg IV every 6 hours as needed for nausea -Thiamine/folate/multivitamin -Psych consult -wire web worker consult Elevated liver function test Most likely secondary to chronic alcoholism. Total bilirubin was initially elevated to 1.7. -Daily LFTs Thrombocytopenia Platelets were found to be initially low at 128. Patient was given intravenous fluids that have possibly diluted the platelet count to even lower over the course of the hospitalization. Given his history of alcoholism patient may be suffering from bone marrow suppression and resulting low platelet count. INR was found to be normal at 1.10. -Daily CBC Depression/anxiety -Lexapro 20 mg by mouth daily -Propranolol 20 mg by mouth daily Current every day smoker-14 mg nicotine patch Pain plan-acetaminophen Diet-regular diet DVT prophylaxis-mechanical CODE STATUS-full code Problem List: 1. Alcohol abuse 2. Alcohol dependence Pain Ratin Pain Location: None Pain Goal: Remain pain free Pain Plan: See assessment Tomorrow's Labs & Rationales: None
--- NOTE | 2016-07-27 14:57 | Discharge Summary ---
Visit Information Visit Dates Admission Date: 07/23/16 Discharge Date: 07/27/16 Hospital Course Course Attending Physician: LEI HUGGINS MD Primary Care Physician: GALINA DURANT,[facility] Course: 40 year old man with significant past medical history of EtOH abuse/dependence, multiple admissions for EtOH detox, anxiety, and depression seen for evaluation of nausea, vomiting, decreased oral intake, and tremulousness. On admission patient denies any recent travel, diarrhea, constipation, or consumption of raw food. He reportedly drank 1-2 pints of hard liquor a day. He denied any previous alcohol related seizures, hospital admission requiring ativan drip, or delerium tremens. Patient has had seven total visits to [facility] for alcohol related complaints. ED Course: -Vitals: Temp 96.5 - 98.0, HR 80-112, RR 18-20, BP 104-141/63-91, O2 95-100% on Room air -Significant Labs: WBC 5.8, Hgb/Hct 16.1/48.3, Plt 128, AST/ALT 267/134, ALK 102 , T. Bili 0.9, Amylase 131, Lipase 715, EtOH 382 -Studies: CT Abdomen/Pelvis - no acute abnormality, diffuse fatty change of liver -Interventions: Lactated Ringers 1L, Ativan 2mg IV x2, Morphine 2mg IV, Reglan 10mg, Banana Bag, EtOH abuse/dependence/detox/alcoholic gastritis Patient was admitted to the general medicine floor and starting on an Ativan taper with [place] protocol. His relatively benign abdominal examination and mild elevation of lipase with a negative CT abdomen/pelvis make acute pancreatitis much less likely than alcohol gastritis. He was continued on oral thiamine/ folate/multivitamin therapy after receiving one banana bag. His nausea was controlled and his diet was slowly advanced from clears to a regular diet. Patient was continued on an oral PPI. He was seen by psychiatry whom recommended starting the patient on Campral. He was discharged to home with instruction to follow up with his intake at [facility], and should that fail contact the number provided to follow up with [facility]. Elevated liver function test Most likely secondary to chronic alcoholism. Total bilirubin was initially elevated to 1.7. Thrombocytopenia Platelets were found to be initially low at 128. Patient was given intravenous fluids that have possibly diluted the platelet count to even lower over the course of the hospitalization. Given his history of alcoholism patient may be suffering from bone marrow suppression and resulting low platelet count. INR was found to be normal at 1.10. Depression/anxiety Patient was seen and evaluated by psychiatry. He was continued on Campral, Lexapro, and Propranolol. Allergies: Coded Allergies: NO KNOWN ALLERGIES (12/14/14) Significant Procedures: EXAM TYPE: CAT - CT ABD & PELVIS W/O IV CONTRAS EXAMINATION: CT ABDOMEN AND PELVIS WITHOUT CONTRAST CLINICAL INFORMATION: Upper abdominal pain. COMPARISON: None TECHNIQUE: Multidetector volumetric imaging was performed from the superior aspect of the liver through the pubic symphysis. Sagittal and coronal reformatted images were obtained on the technologist's workstation. No oral or intravenous contrast DLP: 351.56 mGy-cm FINDINGS: LUNG BASES: The visualized lung bases are unremarkable. LIVER, GALLBLADDER, AND BILIARY TREE: Diffuse low attenuation of the liver parenchyma due to fatty change. No focal liver lesion. No hepatic bile duct dilatation. Right lobe liver measures 18.4 cm superior inferior. The gallbladder is unremarkable with no evidence of radiopaque gallstones, gallbladder wall thickening, or obvious pericholecystic inflammatory changes. PANCREAS: Unremarkable. SPLEEN: Unremarkable. ADRENAL GLANDS: Unremarkable. KIDNEYS AND URETERS: The kidneys are normal in size, shape, and attenuation. No hydronephrosis, hydroureter, or calculi seen. No perinephric stranding. BLADDER: Unremarkable. GASTROINTESTINAL TRACT: The small and large bowel are unremarkable. The appendix is unremarkable. Stomach unremarkable. ABDOMINAL WALL: No significant hernia is appreciated. LYMPH NODES: Normal. VASCULAR: Unremarkable. PELVIC VISCERA: Unremarkable. OSSEOUS STRUCTURES: Unremarkable. IMPRESSION: No acute abnormality CT scan abdomen and pelvis. Diffuse fatty change of liver. Disposition Summary Disposition Principal Diagnosis: Alcoholic Gastritis Additional Diagnosis: EtOH abuse/dependence/withdrawal Depression/Anxiety Thrombocytopenia Transaminitis Discharge Disposition: home or self care Discharge Instructions General Discharge Information Code Status: Full Code Patient's Diet: Regular Diet Patient's Activity: Return to full activity as tolerated. Follow-Up Instructions/Appts: Finish your Ativan Taper as directed. Follow up with your intake at [facility] for further care. Follow up with your primary care provider after discharge. Do not drink alcohol. Medications at Discharge Discharge Medications: Stop taking the following medications: Chlordiazepoxide HCl (Chlordiazepoxide HCl) 25 MG CAPSULE ORAL THREE TIMES DAILY as needed for anxiety/withdrawal symptoms Qty = 10 Chlordiazepoxide HCl (Chlordiazepoxide HCl) 25 MG CAPSULE ORAL THREE TIMES DAILY as needed for alcohol withdrawal Qty = 4 Continue taking these medications: Escitalopram Oxalate (Escitalopram Oxalate) 20 MG TABLET 1 Tablet ORAL DAILY Qty = 15 Folic Acid (Folic Acid) 1 MG TABLET Comments: Last Taken:07/27/2016 Time:9AM Propranolol HCl (Propranolol HCl) 20 MG TABLET 1 Tablet ORAL DAILY Comments: Last Taken:07/27/2016 Time:9AM Trazodone HCl (Trazodone HCl) 50 MG TABLET 1 Tablet ORAL Every night Comments: Last Taken: Time: NOT GIVEN ON THIS ADMISSION Multivit-Min/FA/Lycopen/Lutein (Centrum Silver Tablet) 1 EACH TABLET 1 Tablet ORAL DAILY Comments: Last Taken: Time:NOT GIVEN ON THIS ADMISSION Thiamine HCl (Vitamin B-1) 100 MG TABLET 1 Tablet ORAL DAILY Days = 30 Comments: Last Taken:07/27/2016 Time:9AM Start taking the following new medications: Acamprosate Calcium (Acamprosate Calcium) 333 MG TABLET. 666 Milligram ORAL THREE TIMES DAILY Qty = 21 No Refills Comments: Last Taken:07/27/2016 Time:9AM Nicotine (Nicotine Patch) 14 MG/24 HOUR PATCH.TD24 14 Milligram On the skin DAILY Qty = 7 No Refills Comments: Last Taken:07/27/2016 Time:9AM Lorazepam (Lorazepam) 1 MG TABLET 1 Milligram ORAL TAPER Qty = 2 No Refills Instructions: TAKE ONE TABLET BY MOUTH AFTER DINNER ON 07/27/16 TAKE ONE TABLET BY MOUTH ON 07/28/16 Comments: Last Taken:07/27/2016 Time:0600AM Omeprazole (Omeprazole) 20 MG TABLET. 1 Tablet ORAL DAILY Qty = 14 No Refills Comments: Last Taken:07/27/2016 Time:9AM Copies To: ERVIN MOJICA MD
== END 2016-07-27 12:57 | DRG 775 ==
LOC: ENRESERVDT → ENRESERVTM → ERH 21:34 → ENPENDDIS 23:45 → 2NA 23:45 → ERHI 23:45 → 2NA 07-24 02:04
PROVIDERS: Internal Medicine Hematology & Oncology; Internal Medicine Interventional Cardiology; Pediatrics; ADMIT Student in an Organized Health Care Education/Training Program
DX: F10.239 Alcohol dependence with withdrawal, unspecified (principal); D69.6 Thrombocytopenia, unspecified; K70.10 Alcoholic hepatitis without ascites; F10.229 Alcohol dependence with intoxication, unspecified; T51.0X1A Toxic effect of ethanol, accidental (unintentional), initial encounter; K29.20 Alcoholic gastritis without bleeding; Y90.8 Blood alcohol level of 240 mg/100 ml or more; F17.210 Nicotine dependence, cigarettes, uncomplicated; F41.8 Other specified anxiety disorders; R74.0 Nonspecific elevation of levels of transaminase and lactic acid dehydrogenase [LDH]
CPT/HCPCS: 2NASP; ERO; 36415; 74176; 80307; 81003; 82436; 93005; 93010; 96361; 96374; 96375; 99232; 99233; G0480; J1200; J1650; J2405; J2765; J3490; J7120

== ENCOUNTER 2016-09-04 00:11 | Emergency (ER) | payer OTHER ==
[~2016-09-04] VITALS: Ht 177.8 cm; Wt 88.5 kg
[~2016-09-04 00:11] MED LIST changes: +ACAMPROSATE CA333 M1 PO; +LORAZEPAM1 M1 PO; +NICOTINE PATCH1 EAC2 TOP; +OMEPRAZOLE20 M3 PO
--- NOTE | 2016-09-04 00:45 | ED GI/GU/ABDOMINAL COMPLAINT ---
History of Present Illness General Chief Complaint: ETOH/Drug Related Complaint Stated Complaint: "PER PT WANT TO BE EXAMINED FOR ALCOHOL POSION" Source: patient, family, old records Exam Limitations: no limitations Vital Signs & Intake/Output Vital Signs & Intake/Output Vital Signs Date Time Temp Pulse Resp B/P B/P Pulse O2 O2 Flow FiO2 Mean Ox Delivery Rate 09/04 1315 98.2 93 18 147/98 05/03 1315 98.2 93 18 147/98 97 Room Air 05/03 1304 98.7 88 22 135/87 100 Room Air 05/03 1152 97.7 83 18 142/86 05/03 1152 98.7 83 18 142/86 98 Room Air 05/03 1120 98.2 78 20 145/82 96 Room Air 05/03 1037 97.2 81 18 131/90 05/03 1036 98.7 81 18 131/90 99 Room Air 05/03 0916 98.0 90 16 140/88 97 Room Air 05/03 0817 97.0 80 18 127/64 05/03 0745 97.0 80 18 127/64 96 Room Air 05/03 0559 97.0 75 18 110/70 98 05/03 0557 97.0 75 18 110/70 05/03 0226 96.3 78 18 126/80 98 Room Air 05/03 0023 97.7 88 16 131/82 95 Room Air Allergies Coded Allergies: No Known Allergies (09/04/16) Reconcile Medications Acamprosate Calcium 333 MG TABLET.DR 666 MG PO TID ETOH Escitalopram Oxalate 20 MG TABLET 1 TAB PO DAILY MENTAL HEALTH (Reported) Folic Acid 1 MG TABLET VITAMIN (Reported) Lorazepam 1 MG TABLET 1 MG PO TAPER ETOH TAKE ONE TABLET BY MOUTH AFTER DINNER ON 07/27/16 TAKE ONE TABLET BY MOUTH ON 07/28/16 Multivit-Min/FA/Lycopen/Lutein (Centrum Silver Tablet) 1 EACH TABLET 1 TAB PO DAILY VITAMIN SUPPORT (Reported) Nicotine (Nicotine Patch) 14 MG/24 HOUR PATCH.TD24 14 MG TOP DAILY NICOTINE Omeprazole 20 MG TABLET.DR 1 TAB PO DAILY GASTRITIS Propranolol HCl 20 MG TABLET 1 TAB PO DAILY HEART (Reported) Thiamine HCl (Vitamin B-1) 100 MG TABLET 1 TAB PO DAILY vitamin supplement Trazodone HCl 50 MG TABLET 1 TAB PO QPM sleep (Reported) Triage Note: PT TO ED REQUESTING BLOODWORK "TO SEE WHERE I STAND WITH MY LIVER AND PANCREAS I THINK I'VE DAMANGED THEM MORE." PT AND SIGNIFICANT OTHER REPORT THAT PT IS "MORE PUFFY THAN USUAL AND JAUNDICE." DENIES PHYSICAL PAIN. LAST ADMITTED IN JULY FOR PANCREATITIS AND ETOH DETOX. LAST DRINK 1800, 2PINTS OF VODKA. DNEIES HX OF ETOH WITHDRAWL SEIZURES. Triage Nurses Notes Reviewed? yes HPI: Patient presents to the emergency department and requesting evaluation of his liver and his pancreas. Patient is an alcoholic and has been drinking steadily since shortly after his last discharge in July. Patient states that he thinks that he is more jaundiced than he normally is and he has been getting some abdominal pain. The abdominal pain is cramping is diffuse. There is no aggravating or mitigating factors. There is no radiation outside of the abdominal area. The pain is 4 out of 10. Patient also states that he is nauseous and has not eaten anything in the past few days. (KELVIN DURANT,ARCHIE Parr) Past History Travel History Traveled to [place] past 21 day No Medical History Any Pertinent Medical History? 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 No (KELVIN DURANT,ARCHIE Parr) Review of Systems Review of Systems Constitutional: Reports: no symptoms. EENTM: Reports: no symptoms. Respiratory: Reports: no symptoms. Cardiovascular: Reports: no symptoms. GI: Reports: see HPI, abdominal pain, nausea. Genitourinary: Reports: no symptoms. Musculoskeletal: Reports: no symptoms. Skin: Reports: no symptoms. Neurological/Psychological: Reports: no symptoms. Hematologic/Endocrine: Reports: no symptoms. Immunologic/Allergic: Reports: no symptoms. All Other Systems: Reviewed and Negative (KELVIN DURANT,ARCHIE Parr) Physical Exam Physical Exam General Appearance: well developed/nourished, alert, awake, anxious, mild distress Head: atraumatic Eyes: Bilateral: PERRL, EOMI. Ears, Nose, Throat, Mouth: hearing grossly normal, DRY MUCOUS MEMBRANES Neck: normal inspection, supple, full range of motion Respiratory: normal breath sounds, chest non-tender, no respiratory distress, lungs clear Cardiovascular: regular rate/rhythm, normal peripheral pulses Gastrointestinal: normal bowel sounds, soft, non-tender, no organomegaly Back: normal inspection, normal range of motion Extremities: normal range of motion Neurologic/Psych: no motor/sensory deficits, awake, alert, oriented x 3, normal gait, normal mood/affect Skin: intact, normal color, warm/dry Core Measures ACS in differential dx? No Severe Sepsis Present: No Septic Shock Present: No (KELVIN DURANT,ARCHIE Parr) Progress Differential Diagnosis: biliary colic, colon cancer, cholecystitis, diverticulitis, esophageal varices, gastritis, hepatitis, ischemic bowel, inflamm bowel dis, pancreatitis, peptic ulcer, PUD/GERD, SBO Plan of Care: Orders Procedure Date/time Status Regular Diet 09/04 B Active CIWA 09/04 0050 Active LIPASE 09/05 39 Complete ETHANOL 09/04 0040 Complete COMPREHENSIVE METABOLIC PANEL 09/05 39 Complete CBC WITHOUT DIFFERENTIAL 09/05 39 Complete AMYLASE 09/05 39 Complete Current Medications Sig/Dottie Start time Last Medication Dose Stop Time Status Admin Ondansetron HCl 4 MG ONCE ONE 09/04 0930 CAN (Zofran) 09/04 0931 Laboratory Tests 09/04/16 0120: Anion Gap 15, Estimated GFR > 60, BUN/Creatinine Ratio 12.9, Glucose 87, Calcium 8.7, Total Bilirubin 0.8, AST 49, ALT 45, Alkaline Phosphatase 70, Total Protein 7.6, Albumin 4.2, Globulin 3.4, Albumin/Globulin Ratio 1.2, Amylase 141 H, Lipase 492 H, RBC 5.04, MCV 86.0, MCH 28.9, RDW 17.3 H, MPV 6.9 L, Gran % 47.1, Lymphocytes % 38.7, Monocytes % 9.5 H, Eosinophils % 4.2, Basophils % 0.5 , Absolute Granulocytes 2.4, Absolute Lymphocytes 1.9, Absolute Monocytes 0.5, Absolute Eosinophils 0.2, Absolute Basophils 0, PUBS MCHC 33.6, Serum Alcohol 264.0 Diagnostic Imaging: Viewed by Me: CT Scan. Discussed w/RAD: CT Scan. Radiology Impression: PATIENT: KARLI AGUERO PRESENT AGE: 40 PATIENT ACCOUNT NO: [id number] : 76 LOCATION: [facility] ORDERING PHYSICIAN: ARCHIE WARREN MD SERVICE DATE: 09/04/16 EXAM TYPE: CAT - CT ABD & PELVIS W IV CONTRAST EXAMINATION: CT ABDOMEN AND PELVIS WITH CONTRAST CLINICAL INFORMATION: Right upper quadrant pain COMPARISON: 2016 TECHNIQUE: Multidetector volumetric imaging was performed of the abdomen and pelvis before and after the IV administration of 95 mL of Optiray 320 intravenous contrast. Sagittal and coronal reformatted images were obtained on the technologist's workstation. DLP: 478.75 mGy-cm FINDINGS: LUNG BASES: The visualized lung bases are unremarkable. LIVER, GALLBLADDER, AND BILIARY TREE: The liver demonstrates diffuse hypoattenuation suspicious for fatty infiltration. No focal hepatic lesion or biliary ductal dilatation is present. The gallbladder is unremarkable with no evidence of radiopaque gallstones, gallbladder wall thickening, or obvious pericholecystic inflammatory changes. PANCREAS: Unremarkable. SPLEEN: Unremarkable. ADRENAL GLANDS: Unremarkable. KIDNEYS AND URETERS: The kidneys are normal in size, shape, and attenuation. No hydronephrosis, hydroureter, or calculi seen. No perinephric stranding. BLADDER: Unremarkable. GASTROINTESTINAL TRACT: The small and large bowel are unremarkable. The appendix is unremarkable. ABDOMINAL WALL: No significant hernia is appreciated. LYMPH NODES: Normal. VASCULAR: Unremarkable. PELVIC VISCERA: Unremarkable. OSSEOUS STRUCTURES: Unremarkable. IMPRESSION: No acute findings identified in the abdomen/pelvis. Diffuse fatty infiltration of the liver. DICTATED BY: LONNIE DA SILVA MD DATE/TIME DICTATED:09/04/16240 WELL DRILL OPERATOR CABLE TOOL:HAIM DATE/TIME TRANSCRIBED:09/04/16240 CONFIDENTIAL, DO NOT COPY WITHOUT APPROPRIATE AUTHORIZATION. <Electronically signed in Other Vendor System> SIGNED BY: LONNIE DA SILVA MD 09/04/16 0250 Initial ED EKG: none Hand-Off Endorsed To: CLAIR GOLD MD Endorsed Time: 0700 Pending: other (RE-EVAL) (KELVIN DURANT,ARCHIE Parr) Comments: Does not meet criteria for hospitalization. (CLAIR GOLD MD) Departure Departure Condition: Stable Referrals: ERVIN MOJICA MD (PCP/Family) (KELVIN DURANT,ARCHIE Parr) Departure Time of Disposition: 1314 Disposition: HOME OR SELF CARE Clinical Impression Primary Impression: Alcohol intoxication Qualifiers: Complication of substance-induced condition: with unspecified complication Qualified Code: F10.129 - Alcohol abuse with intoxication, unspecified Departure Forms: Customer Survey DETOX FACILITIES LIST General Discharge Information Prescriptions: Current Visit Scripts Ondansetron (Zofran Odt) 1 TAB SL TID PRN nausea #15 TAB Chlordiazepoxide HCl 0 PO SEE ADMIN CRITERIA PRN anxiety #30 CAP 1-2 tabs 3 times a day for 2 days 1-2 tabs 2 times a day for 2 days 1-2 tabs 1 time a day for 2 days Hydroxyzine HCl 1-2 TAB PO Q6P PRN anxiety #60 TAB (CLAIR GOLD MD)
[2016-09-04 01:28] LABS: ABSOLUTE BASOPHIL COUNT 0 /CUMM (0.0-0.2); ABSOLUTE EOSINOPHIL COUNT 0.2 /CUMM (0.0-0.7); ABSOLUTE GRANULOCYTE CT 2.4 /CUMM (1.4-6.5); ABSOLUTE LYMPH COUNT 1.9 /CUMM (1.2-3.4); ABSOLUTE MONOCYTE COUNT 0.5 /CUMM (0.10-0.60); BASOPHIL % 0.5 % (0.0-2.0); EOSINOPHIL % 4.2 % (0-5); GRANULOCYTE % 47.1 % (42.2-75.2); HEMATOCRIT 43.4 % (42-52); MEAN CORPUSCULAR HGB 28.9 PG (27.0-31.0); MEAN CORPUSCULAR HGB CONC 33.6 G/DL (33.0-37.0); MEAN PLATELET VOLUME 6.9 FL (7.4-10.4); PLATELET COUNT 173 /CUMM (130-400); RBC DISTRIBUTION WIDTH 17.3 % (11.5-14.5); RED BLOOD CELL CT 5.04 /CUMM (4.70-6.10)
--- NOTE | 2016-09-04 02:50 | CT SCAN REPORT ---
EXAMINATION: CT ABDOMEN AND PELVIS WITH CONTRAST CLINICAL INFORMATION: Right upper quadrant pain COMPARISON: 07/24/2016 TECHNIQUE: Multidetector volumetric imaging was performed of the abdomen and pelvis before and after the IV administration of 95 mL of Optiray 320 intravenous contrast. Sagittal and coronal reformatted images were obtained on the technologist's workstation. DLP: 478.75 mGy-cm FINDINGS: LUNG BASES: The visualized lung bases are unremarkable. LIVER, GALLBLADDER, AND BILIARY TREE: The liver demonstrates diffuse hypoattenuation suspicious for fatty infiltration. No focal hepatic lesion or biliary ductal dilatation is present. The gallbladder is unremarkable with no evidence of radiopaque gallstones, gallbladder wall thickening, or obvious pericholecystic inflammatory changes. PANCREAS: Unremarkable. SPLEEN: Unremarkable. ADRENAL GLANDS: Unremarkable. KIDNEYS AND URETERS: The kidneys are normal in size, shape, and attenuation. No hydronephrosis, hydroureter, or calculi seen. No perinephric stranding. BLADDER: Unremarkable. GASTROINTESTINAL TRACT: The small and large bowel are unremarkable. The appendix is unremarkable. ABDOMINAL WALL: No significant hernia is appreciated. LYMPH NODES: Normal. VASCULAR: Unremarkable. PELVIC VISCERA: Unremarkable. OSSEOUS STRUCTURES: Unremarkable. IMPRESSION: No acute findings identified in the abdomen/pelvis. Diffuse fatty infiltration of the liver.
[2016-09-04 13:15] VITALS: BP 147/98
[2016-09-04] MEDS ORDERED: CHLORDIAZEPOXID25 M3 PO (13:19)
[2016-09-04] MEDS ORDERED: HYDROXYZINE HCL25 M2 PO (13:19)
[2016-09-04] MEDS ORDERED: ZOFRAN ODT4 M1 SL (13:19)
== END 2016-09-04 13:41 ==
LOC: ERH 00:11
PROVIDERS: Emergency Medicine
DX: F10.10 Alcohol abuse, uncomplicated (principal)
CPT/HCPCS: 74177; 96374; 96375; G0480; J2405; J7060

== ENCOUNTER 2016-09-26 15:45 | Emergency (ER) | payer OTHER ==
[~2016-09-26] VITALS: Ht 177.8 cm; Wt 87.1 kg
[~2016-09-26 15:45] MED LIST changes: +HYDROXYZINE HCL25 M2 PO; +ZOFRAN ODT4 M1 SL
[2016-09-26] MEDS ORDERED: FOLIC ACID0.8 M2 PO (16:30)
[2016-09-26] MEDS ORDERED: THIAMINE HCL250 MG PO (16:31)
[2016-09-26] MEDS ORDERED: ATIVAN0.5 M1 PO (17:39)
--- NOTE | 2016-09-26 17:40 | ED GENERAL ADULT ---
History of Present Illness General Chief Complaint: General Adult Stated Complaint: MED REFILL Source: patient Exam Limitations: no limitations Vital Signs & Intake/Output Vital Signs & Intake/Output Vital Signs Date Time Temp Pulse Resp B/P B/P Pulse O2 O2 Flow FiO2 Mean Ox Delivery Rate 09/26 1621 104 09/26 1618 Room Air Room Air 09/26 1550 96.4 126 18 96 Room Air ED Intake and Output 09/27 0000 09/26 1200 Intake Total 0 Output Total Balance 0 Intake, Oral 0 Patient 192 lb Weight Weight Reported by Patient Measurement Method Allergies Coded Allergies: No Known Allergies (09/04/16) Reconcile Medications Chlordiazepoxide HCl 25 MG CAPSULE 0 PO SEE ADMIN CRITERIA PRN anxiety 1-2 tabs 3 times a day for 2 days 1-2 tabs 2 times a day for 2 days 1-2 tabs 1 time a day for 2 days Escitalopram Oxalate 20 MG TABLET 1 TAB PO DAILY MENTAL HEALTH (Reported) Folic Acid 0.8 MG TABLET 1 TAB PO DAILY SUPPLEMENT (Reported) Hydroxyzine HCl 25 MG TABLET 1-2 TAB PO Q6P PRN anxiety Lorazepam (Ativan) 0.5 MG TABLET 1 TAB PO BID PRN ANXIETY Multivit-Min/FA/Lycopen/Lutein (Centrum Silver Tablet) 1 EACH TABLET 1 TAB PO DAILY VITAMIN SUPPORT (Reported) Propranolol HCl 20 MG TABLET 1 TAB PO DAILY HEART (Reported) Thiamine HCl 250 MG TABLET 1 TAB PO DAILY SUPPLEMENT (Reported) Trazodone HCl 50 MG TABLET 1 TAB PO QPM sleep (Reported) Triage Note: 40 Y/O MALE REQUESTING SCRIPT FOR LIBRIUM. STATES HE WOULD LIKE TO DETOX FROM ALCOHOL BUT DOES NOT WANT TO DO IT IN THE EMERGENCY DEPARTMENT. STATES HE HAS TAKEN LIBRIUM BEFORE AND WOULD LIKE TO START IT AGAIN - LAST DOSE 5 DAYS AGO. ADMITS TO DRINKING TODAY, "HALF PINT". DENIES HX WITHDRAWAL SEIZURES. HR 120'S. DENIES OTHER COMPLAINTS. FRIEND PRESENT. Triage Nurses Notes Reviewed? yes Onset: yesterday Duration: hour(s): Timing: single episode of heavy drinking yest Severity: severe HPI: Patient presents for evaluation of possible alcohol withdrawal. Specifically the patient is requesting Librium prescription. He states that he drank yesterday after being sober for a month. he is worried about withdrawal. Past History Travel History Traveled to [place] past 21 day No Medical History Any Pertinent Medical History? 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 No Review of Systems Review of Systems Constitutional: Reports: no symptoms. EENTM: Reports: no symptoms. Respiratory: Reports: no symptoms. Cardiovascular: Reports: no symptoms. GI: Reports: no symptoms. Genitourinary: Reports: no symptoms. Musculoskeletal: Reports: no symptoms. Skin: Reports: no symptoms. Neurological/Psychological: Reports: anxiety. Hematologic/Endocrine: Reports: no symptoms. Immunologic/Allergic: Reports: no symptoms. All Other Systems: Reviewed and Negative Physical Exam Physical Exam General Appearance: see below Comments: gen: wn, wd, no acute resp distress head: nc/at eyes: normal inspection ears: normal inspection nose: normal inspection throat/mouth: moist mucosa neck: supple, from, no goiter lungs: quiet resp abd: nondistended back: normal range of motion ext: normal range of motion, no cyanosis, clubbing or edema of upper ext, no tremors skin: warm and dry circulatory: normal radial pulses neuro: cn 2-12 grossly intact, speech clear psych: calm, cooperative, no apparent delusion, hallucinations or pressured speech Core Measures ACS in differential dx? No CVA/TIA Diagnosis: No Severe Sepsis Present: No Septic Shock Present: No Progress Differential Diagnoses I considered the following diagnoses in my evaluation of the patient: etoh w/d Plan of Care: ativan for anxiety, pt highly unlikely to withdraw from alchohol due to one day of drinking. Initial ED EKG: none Departure Departure Disposition: HOME OR SELF CARE Condition: Stable Clinical Impression Primary Impression: Alcohol abuse Secondary Impressions: Anxiety Referrals: ERVIN MOJICA MD (PCP/Family) Additional Instructions: Follow-up with your primary care doctor and the IOP program as soon as possible for reevaluation. Ativan as prescribed for anxiety. Return if any concerns or sudden worsening. Departure Forms: Customer Survey General Discharge Information Prescriptions: Current Visit Scripts Lorazepam (Ativan) 1 TAB PO BID PRN ANXIETY #5 TAB Critical Care Note Critical Care Note Critical Care Time: non-applicable
== END 2016-09-26 17:45 ==
LOC: ERH 15:45
DX: F10.10 Alcohol abuse, uncomplicated (principal); F41.9 Anxiety disorder, unspecified